=== PATIENT | female | born 1935 | race Caucasian/White ===

== ENCOUNTER 2016-07-23 12:08 | Outpatient (CLI) | payer MEDICARE, BC ==
[~2016-07-23] VITALS: Ht 165.1 cm; Wt 56.2 kg
--- OUTSIDE RECORDS SUMMARY | 2016-07-23 12:12 | XMS REPORT | Continuity of Care Document ---
Author Author [facility] Organization [facility] Address Unknown Phone Unavailable Care Team Providers Care Director Loan Name Role Phone Yokasta Hook PCP Unavailable Source Comments Some departments are not documenting in the electronic medical record. If you do not see the information that you expected, contact Release of Information in the Health Information Management department at [phone] for further assistance in locating additional records.[facility] Active Allergies and Adverse Reactions Allergen Noted Date Severity Reactions Comments Pcn 01/23/2011 RASH, ITCHING Current Medications Prescription Sig. Disp. Refills Start End Date Status Date oxycodone SR (OXYCONTIN) Take 10 mg by mouth every Active 10 mg PO tablet 12 hours. atenolol (TENORMIN) 50 mg Take 50 mg by mouth Active PO tablet daily. hydrocodone-acetaminophen Take 1-2 Tabs by mouth Active (NORCO) 5-325 mg PO per every 6 hours as needed. tablet calcitonin salmon Insert 1 [place] into nose Active (FORTICAL) 200 as directed daily. 1 unit/Actuation NA nasal spray to 1 nostril. spray Alternate nostrils. cyclobenzaprine Take 10 mg by mouth three Active (FLEXERIL) 10 mg PO times daily as needed. tablet Fesoterodine (TOVIAZ) 8 Take by mouth. Active mg PO Tb24 cyanocobalamin (VITAMIN Inject 1,000 mcg to Active B-12, RUBRAMIN) 1,000 area(s) as directed every mcg/mL IJ injection 30 days. alprazolam (XANAX) 0.5 mg Take 0.5 mg by mouth Active PO tablet three times daily as needed. aspirin EC 81 mg PO Take 81 mg by mouth Active tablet daily. Guar Gum (BENEFIBER Take by mouth. Active CLEAR) PO Pack senna/docusate Take 2 Tabs by mouth at Active (SENNALAX-S) 8.6/50 mg PO bedtime daily. tablet polysaccharide iron Take 150 mg by mouth Active complex (NIFEREX) 150 mg twice daily. PO capsule MULTI-VITAMIN PO Take by mouth. Active hydrocodone/acetaminophen Take 1-2 Tabs by mouth 30 Tab 0 01/31/20 Active (VICODIN) 5/500 mg PO every 6 hours as needed 11 tablet for Pain. docusate (COLACE) 100 mg Take 1 Cap by mouth daily 180 Cap 0 01/31/20 Active PO capsule as needed for 11 Constipation. Active Problems Not on file Social History Tobacco Use Types Packs/Day Years Used Date Former Smoker Cigarettes 1 25 Quit: 07/26/1998 Smokeless Tobacco: Never Used Alcohol Use Drinks/Week oz/Week Comments No Last Filed Vital Signs Vital Sign Reading Time Taken Blood Pressure 159/85 01/30/2011 11:49 AM CDT Pulse 72 01/30/2011 11:49 AM CDT Temperature 36.7 C (98 F) 01/30/2011 11:49 AM CDT Respiratory Rate - - Height 1.702 m (5' 7.01") 01/24/2011 1:00 PM CDT Weight 59.013 kg (130 lb 1.6 oz) 01/23/2011 8:25 PM CDT Body Mass Index 20.37 01/23/2011 8:25 PM CDT Oxygen Saturation 96% 01/30/2011 11:49 AM CDT Plan of Care Health Maintenance Due Date Last Done Comments Physical (Comprehensive) 1941 Exam Pertussis Vaccine 1945 Tetanus Vaccine 10/30/1951 Breast Cancer Screening 1974 Shingles Vaccine 1994 Osteoporosis Screening 10/30/1999 Prevnar/Pneumovax (#1) 10/30/1999 Influenza Vaccine 03/15/2015 Results from Last 3 Months Not on file
[2016-07-23] MEDS ORDERED: TRIAMCINOLONE ACET (KENALOG-40) 40 MG/ML 1 ML VIAL ONE (12:17)
[2016-07-23] MEDS ORDERED: BUPIVACAINE 0.25% 30 ML (SENSORCAINE) VIAL ONE (12:17)
[2016-07-23 12:31] VITALS: BP 100/67
[2016-07-23 13:33] VITALS: BP 103/62
--- NOTE | 2016-07-23 14:41 | Pain Medicine-Procedure ---
Procedure Pre-Op/Post-Op Diagnosis Diagnosis: disc disorder with radiculopathy, lumbar Indications for Operation Low back pain Attending Surgeon Ronnell Procedure Date of Service: Jul 23, 2016 PROCEDURE: Caudal Epidural Steroid Injection with catheter under Flouroscopic Guidance PROCEDURE NOTE: After obtaining written informed consent patient was taken to the procedure room. Vital signs were monitored through out the procedure. A time out was performed. The patient was placed in the prone position on fluoroscopy table. The lower back above the caudal space was prepped with chloraprep and draped in the usual sterile fashion. The skin over the sacral hiatus was identified under fluoroscopic guidance and infiltrated with 1% lidocaine for local anesthesia via 25 gauge needle. An 17-gauge epimed needle was used to access the epidural space under fluoroscopic guidance and was then advanced into the epidural space under fluoroscopic guidance in the AP view. The epimed catheter was then advanced under flourospopic guidance to the L5-S1 interspace. There was no paresthesia with catheter placement. After negative aspiration 1 cc of the contrast dye was injected through the needle with good spread of the medication in the epidural space at the appropriate levels. Again, after negative aspiration, 80 mg of kenalog with 2 cc of 0.25% marcaine and 2 mL's of preservative free normal saline was injected. There was no evidence of CSF, paresthesia or heme during the procedure. The catheter and needle were withdrawn as a unit and the tip was noted to be intact upon removal. Skin was cleaned and a sterile dressing was applied. Following the procedure the patient's vital signs were stable. The patient was discharged home after a brief period of observation with no new neuologic deficits. Complications None JUSTIN SHAW MD Jul 23, 2016 2:41 pm
== END 2016-07-23 13:34 | disposition home or self-care (01) ==
LOC: CARD 12:08 → EDBD 13:00 → CARD 13:34
PROVIDERS: ATTEND Pain Medicine Pain Medicine
DX: M51.16 Intervertebral disc disorders with radiculopathy, lumbar region (principal); M96.1 Postlaminectomy syndrome, not elsewhere classified; Z79.899 Other long term (current) drug therapy
CPT/HCPCS: 62323

== ENCOUNTER 2017-02-14 15:36 | Inpatient (IN) | payer MEDICARE, BC ==
[~2017-02-14] VITALS: Ht 172.7 cm; Wt 58.7 kg
[2017-02-14] MEDS ORDERED: ALPRAZolam 0.25 MG (XANAX) TAB PO PRN (16:00)
[2017-02-14] MEDS ORDERED: HYDROcodone/APAP 5 MG/325 MG (LORTAB) TAB PO PRN (16:00)
[2017-02-14] MEDS ORDERED: ACETAMINOPHEN 500 MG TAB (TYLENOL) PO PRN (16:00)
[2017-02-14] MEDS ORDERED: LACTULOSE SYRUP 10GM/15ML (ENULOSE) 30ML UDC PO PRN (16:00)
[2017-02-14 17:10] VITALS: BP 125/64
[2017-02-14] MEDS ORDERED: CATHETER FLUSH 10 ML SYR IV PRN (17:45)
[2017-02-14] MEDS: NS IV 1000 ML 1,000 ML IV SCH (17:47)
[2017-02-14] MEDS: fentaNYL INJECTION 100 MCG/2 ML AMP IVP PRN ×2 (17:47→20:24)
[2017-02-14] MEDS ORDERED: ASPI-586 PO (17:52)
[2017-02-14 18:30] LABS: BASOPHILS % (AUTO) 0 % (0-10); EOSINOPHILS % (AUTO) 0 % (0-10); LYMPHOCYTES # (AUTO) 0.8 X 10^3 (1.0-4.0); LYMPHOCYTES % (AUTO) 10 % (12-44); MEAN CORPUSCULAR HEMOGLOBIN 28 PG (25-34); MEAN CORPUSCULAR HGB CONC 33 G/DL (32-36); MEAN CORPUSCULAR VOLUME 85 FL (80-99); MEAN PLATELET VOLUME 9.6 FL (7.4-10.4); MONOCYTES # (AUTO) 0.8 X 10^3 (0.0-1.0); MONOCYTES % (AUTO) 9 % (0-12); NEUTROPHILS # (AUTO) 7.1 X 10^3 (1.8-7.8); NEUTROPHILS % (AUTO) 81 % (42-75); PLATELET COUNT 212 10^3/uL (130-400); RED BLOOD COUNT 4.48 10^6/uL (4.35-5.85); RED CELL DISTRIBUTION WIDTH 13.2 % (10.0-14.5); WHITE BLOOD COUNT 8.7 10^3/uL (4.3-11.0)
[2017-02-14 18:49] LABS: ALBUMIN 3.7 GM/DL (3.2-4.5); BILIRUBIN,TOTAL 0.6 MG/DL (0.1-1.0); CALCIUM 9.3 MG/DL (8.5-10.1); CREATININE SERUM 0.93 MG/DL (0.60-1.30); POTASSIUM 4.2 MMOL/L (3.6-5.0); TOTAL PROTEIN 5.9 GM/DL (6.4-8.2)
[2017-02-14 19:54] VITALS: BP 102/64
[2017-02-15] VITALS: BP 102/56
[2017-02-15] MEDS: fentaNYL INJECTION 100 MCG/2 ML AMP IVP PRN ×4 (00:53→12:47)
[2017-02-15 03:40] VITALS: BP 103/58
[2017-02-15 06:59] LABS: BASOPHILS % (AUTO) 0 % (0-10); EOSINOPHILS # (AUTO) 0.1 10^3/uL (0.0-0.3); EOSINOPHILS % (AUTO) 1 % (0-10); LYMPHOCYTES # (AUTO) 0.6 X 10^3 (1.0-4.0); LYMPHOCYTES % (AUTO) 12 % (12-44); MEAN CORPUSCULAR HEMOGLOBIN 27 PG (25-34); MEAN CORPUSCULAR HGB CONC 32 G/DL (32-36); MEAN CORPUSCULAR VOLUME 85 FL (80-99); MEAN PLATELET VOLUME 9.8 FL (7.4-10.4); MONOCYTES # (AUTO) 0.7 X 10^3 (0.0-1.0); MONOCYTES % (AUTO) 14 % (0-12); NEUTROPHILS # (AUTO) 3.5 X 10^3 (1.8-7.8); NEUTROPHILS % (AUTO) 73 % (42-75); PLATELET COUNT 160 10^3/uL (130-400); RED BLOOD COUNT 3.97 10^6/uL (4.35-5.85); RED CELL DISTRIBUTION WIDTH 13.2 % (10.0-14.5); WHITE BLOOD COUNT 4.8 10^3/uL (4.3-11.0)
[2017-02-15 07:11] LABS: ALANINE AMINOTRANSFERASE < 6 U/L (0-55); ALBUMIN 3.3 GM/DL (3.2-4.5); ANION GAP 11 MMOL/L (5-14); ASPARTATE AMINO TRANSFERASE 15 U/L (5-34); BILIRUBIN,TOTAL 0.8 MG/DL (0.1-1.0); BLOOD UREA NITROGEN 14 MG/DL (7-18); BUN/CREATININE RATIO 17; CALCIUM 8.7 MG/DL (8.5-10.1); CARBON DIOXIDE 18 MMOL/L (21-32); CHLORIDE 111 MMOL/L (98-107); CREATININE SERUM 0.81 MG/DL (0.60-1.30); GFR ESTIMATED > 60; GLUCOSE 120 MG/DL (70-105); POTASSIUM 4.2 MMOL/L (3.6-5.0); SODIUM 140 MMOL/L (135-145); TOTAL PROTEIN 5.1 GM/DL (6.4-8.2)
[2017-02-15] MEDS ORDERED: HYDR-3812 PO ×2 (07:47→08:55)
[2017-02-15] MEDS ORDERED: ALPR1TAB7 PO (07:47)
[2017-02-15] MEDS ORDERED: PANT40TA3 PO (07:47)
[2017-02-15] MEDS ORDERED: LISI10TA2 PO (07:47)
[2017-02-15] MEDS ORDERED: GABA-486 PO (07:47)
[2017-02-15] MEDS ORDERED: MIRA50TA PO (07:47)
[2017-02-15] MEDS: NS IV 1000 ML 1,000 ML IV SCH ×2 (08:04→10:03)
[2017-02-15 08:10] VITALS: BP 145/59
--- NOTE | 2017-02-15 08:30 | CONSULTATION REPORT ---
DATE OF CONSULTATION: 02/14/2017 REFERRING PHYSICIAN: HISTORY OF THE PRESENT ILLNESS: The patient was seen in an outside hospital and they were concerned because they did not have an intensive care unit there so the patient was transferred to this hospital for her left hip fracture. She talked about having a right hip fracture in the past and understanding the overall concepts and risks and benefits. ORTHOPEDIC EXAM: The patient is alert and oriented. Left lower extremity is internally rotated and shortened. Distally, grossly, neurovascularly intact. The skin is intact over the left hip. X-RAY REPORT: Report is of an intertrochanteric fracture involving the left hip. These were on a disc and I have not been able to see them myself yet. IMPRESSION: Left hip intertrochanteric fracture, unstable. PLAN: Surgery on left hip to line up bone and fix with hardware (open reduction and internal fixation of the left hip intertrochanteric fracture). CONSENT: I discussed the diagnosis, procedure, risks, benefits, alternatives, likely flores for success as well as rehab. The major risk is shortening of the extremity, toes turned in or out, some chronic pain or weakness in that lower extremity. Also there is a small chance of infection or hardware and not working or need for more surgery. The patient had all of her questions answered. Job ID: [id number] Dictated Date: 02/14/2017 21:58:30 Assembly Cleaner Date: 02/15/2017 08:24:37/pranay
--- NOTE | 2017-02-15 08:40 | Consultation-Cardiology ---
HPI-Cardiology Cardiology Consultation: Date of Consultation 02/15/17 Time Seen by Provider: 08:10 Date of Admission Attending Physician Lachelle Quigley DO Admitting Physician Lori Mckeon MD Consulting Physician ANDREW FLAHERTY MD, MA, FACP, FACC, FSCAI, CCDS HPI: Chief Complaint: Reason for consultation: Pre-op cardiac eval 81 yo woman with nonsyncopal fall leading to L hip fracture. Admitted to Dr Quigley. Awaiting hip surgery Denies cp or palp or shortness of breath or leg swelling or syncope Has chronic joint and back pain Review of Systems-Cardiology Review of Systems Constitutional: malaise, No weight loss, No weight gain Eyes: No vision change Ears/Nose/Throat: No ear discharge, No nasal drainage, No recent hearing loss Cardiovascular: As described under HPI Gastrointestinal: No constipation, No diarrhea, No nausea, No vomiting Genitourinary: No dysuria, No hematuria, No urine frequency changes Musculoskeletal: back pain, joint pain Skin: No rash, No ulcerations Psychiatric/Neurological: No focal weakness, No seizure, No syncope Hematologic: No bleeding abnormalities XWQ-Rscvoi-Nlyvop Hx Patient Social History Alcohol Use: Denies Use Recreational Drug Use: No Smoking Status: Former Smoker Type Used: Cigarettes Recent Foreign Travel: No Recent Infectious Disease Expo: No Physical Abuse Screen: No Sexual Abuse: No Past Medical History PMH As described under Assessment. Family Medical History Family History: Diabetes mellitus G8 SISTER Kidney disease 19 FATHER Parkinson's disease 19 FATHER Allergies and Home Medications Allergies Coded Allergies: Penicillins (Verified Allergy, Unknown, RASH, 02/14/17) oxycodone (Verified Allergy, Unknown, NAUSEA, 02/14/17) Home Medications Alprazolam 1 Mg Tablet, 1 MG PO BID, (Reported) Aspirin 81 Mg Tablet.dr, 81 MG PO DAILY, (Reported) Gabapentin 100 Mg Capsule, 100 MG PO BID, (Reported) Hydrocodone/Acetaminophen 1 Each Tablet, for PAIN-MODERATE, (Reported) Lisinopril 10 Mg Tablet, 10 MG PO DAILY, (Reported) Mirabegron 50 Mg Tab.er.24h, 50 MG PO DAILY, (Reported) Pantoprazole Sodium 40 Mg Tablet.dr, 40 MG PO DAILY, (Reported) Physical Exam-Cardiology Physical Exam Vital Signs/I&O Vital Sign - Last 12Hours 02/15/17 02/15/17 00:00 03:40 Temp 99.2 98.5 Pulse 93 99 Resp 20 18 B/P (MAP) 102/56 103/58 Pulse Ox 96 95 O2 Delivery Room Air Room Air Intake and Output 02/15/17 00:00 Intake Total 160 ml Output Total 800 ml Balance -640 ml Capillary Refill : Less Than 3 Seconds Constitutional: AAO x 3, other (thin appearing) HEENT: EOMI, oral hygience is good, No xanthelasmas are seen Neck: carotid pulses are 2 + bilaterally, with good upstrokes Respiratory: No accessory muscle use, other (fair to good bilateral air entry) Cardiovascular: regular rate-rhythm, S1 and S2, systolic murmur (faint TAMIKO at card base) Gastrointestinal: No tender, No guarding, No rebound, audible bowel sounds Extremities: No clubbing, No cyanosis Neurologic/Psychiatric: oriented x 3, other (We did not attempt any motion at the lower limb joints. Moves upper limbs equally), grossly intact Skin: No rash on exposed areas, No ulcerations on exposed areas Data Review Labs Laboratory Tests 02/14/17 18:23: White Blood Count 8.7, Red Blood Count 4.48, Hemoglobin 12.4, Hematocrit 38, Mean Corpuscular Volume 85, Mean Corpuscular Hemoglobin 28, Mean Corpuscular Hemoglobin Concent 33, Red Cell Distribution Width 13.2, Platelet Count 212, Mean Platelet Volume 9.6, Neutrophils (%) (Auto) 81H, Lymphocytes (%) (Auto) 10L , Monocytes (%) (Auto) 9, Eosinophils (%) (Auto) 0, Basophils (%) (Auto) 0, Neutrophils # (Auto) 7.1, Lymphocytes # (Auto) 0.8L, Monocytes # (Auto) 0.8, Eosinophils # (Auto) 0.0, Basophils # (Auto) 0.0, Sodium Level 142, Potassium Level 4.2, Chloride Level 110H, Carbon Dioxide Level 23, Anion Gap 9, Blood Urea Nitrogen 18, Creatinine 0.93, Estimat Glomerular Filtration Rate 58, BUN/ Creatinine Ratio 19, Glucose Level 134H, Calcium Level 9.3, Total Bilirubin 0.6 , Aspartate Amino Transf (AST/SGOT) 17, Alanine Aminotransferase (ALT/SGPT) 6, Alkaline Phosphatase 78, Total Protein 5.9L, Albumin 3.7 02/15/17 06:30: White Blood Count 4.8, Red Blood Count 3.97L, Hemoglobin 10.8L, Hematocrit 34L, Mean Corpuscular Volume 85, Mean Corpuscular Hemoglobin 27, Mean Corpuscular Hemoglobin Concent 32, Red Cell Distribution Width 13.2, Platelet Count 160, Mean Platelet Volume 9.8, Neutrophils (%) (Auto) 73, Lymphocytes (%) (Auto) 12, Monocytes (%) (Auto) 14H, Eosinophils (%) (Auto) 1, Basophils (%) (Auto) 0, Neutrophils # (Auto) 3.5, Lymphocytes # (Auto) 0.6L, Monocytes # (Auto) 0.7, Eosinophils # (Auto) 0.1, Basophils # (Auto) 0.0, Sodium Level 140, Potassium Level 4.2, Chloride Level 111H, Carbon Dioxide Level 18L, Anion Gap 11, Blood Urea Nitrogen 14, Creatinine 0.81, Estimat Glomerular Filtration Rate > 60, BUN/ Creatinine Ratio 17, Glucose Level 120H, Calcium Level 8.7, Total Bilirubin 0.8 , Aspartate Amino Transf (AST/SGOT) 15, Alanine Aminotransferase (ALT/SGPT) < 6 , Alkaline Phosphatase 74, Total Protein 5.1L, Albumin 3.3 Laboratory Tests 02/14/17 18:23 02/15/17 06:30 ECG Impression ECG Comment ECG on 02/15/17: NSR with left axis deviation, unchanged compared to 02/14/17 A/P-Cardiology Assessment/Admission Diagnosis * H/o cardiomyopathy and h/o CHF (according to patient's family) the details of which are unknown * Family reports that a cardiac cath [facility] about 2 years ago did not show any significant heart artery blockages * Pt doesn't report any symptoms of angina or CHF * Nonspecific abnormalities on ECG * Hypertension * R hip fracture for which she is awaiting surgery Discussion and Recomendations * Based on the data available (see above) cardiac risk for noncardiac surgery is estimated to be Intermediate. It appears reasonable to proceed with necessary surgery. I did discuss her cardiac risk with her and her daughter. They understand. The patient wishes to proceed * We recommend enoxaparin DVT prophylaxis perioperatively * We are trying to obtain details of cardiac work up at [facility] Clinical Quality Measures DVT/VTE Risk/Contraindication: Risk Factor Score Per Nursin RFS Level Per Nursing on Admit: 4+=Very High Contraindications-Pharm: Other *list below* Other: surgery tomorrow ANDREW FLAHERTY MD FACP FAC CCDS Feb 15, 2017 08:40
[2017-02-15] MEDS ORDERED: SENN-40 PO (08:44)
[2017-02-15] MEDS ORDERED: CYAN100081 PO (08:44)
[2017-02-15] MEDS: ONDANSETRON 4 MG/2 ML (SDV) Z0FRAN IVP PRN ×3 (10:03→21:22)
[2017-02-15 12:00] VITALS: BP 132/70
--- NOTE | 2017-02-15 12:09 | History & Physical-Hospitalist ---
HPI History of Present Illness: HPI/Chief Complaint CC: Acute left hip fracture sustained in fall at home HPI: This is an 81-year-old white female patient of Dr Enciso in [place] the presents after a direct admission transfer acceptance onto the hospitalist service from [place] emergency room. Apparently she turned around near her refrigerator door and fell over a chair and stayed on the floor for 20 minutes until her grader meat arrived and she was brought to the emergency room found to have left hip fracture in need of repair. Patient has required skilled care at medical [facility] [place] in the past and that is where she wants to return to on Saturday. Her daughter is at the bedside with her today. I reconciled all her home medication and she is prepared for repair this afternoon to begin therapy. She does have a history of congestive heart failure severe echocardiogram was completed and cardiology was consulted for risk stratification. Source: patient, family Exam Limitations: no limitations Date Seen 02/15/17 Time Seen by Provider: 11:00 Attending Physician Lachelle Quigley DO PCP Lori Mckeon MD Referring Physician Date of Admission Feb 14, 2017 at 17:36 Home Medications & Allergies Home Medications Reviewed patient Home Medication Reconciliation Form Allergies Allergies Coded Allergies Penicillins (Verified Allergy, Unknown, RASH, 02/14/17) oxycodone (Verified Allergy, Unknown, NAUSEA, 02/14/17) Past Bfxjife-Vxvutk-Vtkmer Hx Patient Social History Marrital Status: single Employed/Student: retired ( [employer] [place] [employer]) Alcohol Use: Denies Use Recreational Drug Use: No Smoking Status: Former Smoker Type Used: Cigarettes Physical Abuse Screen: No Sexual Abuse: No Recent Foreign Travel: No Contact w/other who traveled: No Recent Hopitalizations: No Recent Infectious Disease Expo: No Seasonal Allergies Seasonal Allergies: No Surgeries HX Surgeries: Yes Surgeries: Orthopedic Respiratory Hx Respiratory Disorders: No Cardiovascular Hx Cardiovascular Disorders: Yes Cardiac Disorders: Cardiomyopathy Neurological Hx Neurological Disorders: No 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 Genitourinary Hx Genitourinary Disorders: Yes Genitourinary Disorders: Bladder Infection, UTI-Chronic Gastrointestinal Hx Gastrointestinal Disorders: Yes Gastrointestinal Disorders: Chronic Constipation, Hiatal Hernia, Gall Bladder Disease Musculoskeletal Hx Musculoskeletal Disorders: Yes Musculoskeletal Disorders: Arthritis, Fractures Endocrine Hx Endocrine Disorders: No HEENT Hearing Impairment: Hard of Hearing Cancer Hx Cancer: No Psychosocial Hx Psychiatric Problems: Yes Behavioral Health Disorders: Anxiety Family Medical History Family Hx: Diabetes mellitus G8 SISTER Kidney disease 19 FATHER Parkinson's disease 19 FATHER Review of Systems Constitutional: see HPI EENTM: no symptoms reported Respiratory: no symptoms reported Cardiovascular: no symptoms reported Gastrointestinal: no symptoms reported Genitourinary: no symptoms reported Musculoskeletal: joint pain (left hip) Skin: no symptoms reported Psychiatric/Neurological: No Symptoms Reported All Other Systems Reviewed Negative Unless Noted: Yes Physical Exam Physical Exam Vital Signs Vital Sign - Last 12Hours 02/14/17 17:10 Temp 98.2 Pulse 92 Resp 20 B/P (MAP) 125/64 Pulse Ox 96 O2 Delivery Room Air Capillary Refill : Less Than 3 Seconds General Appearance: No Apparent Distress, WD/WN, Chronically ill Eyes: Bilateral Eye Normal Inspection, Bilateral Eye PERRL HEENT: PERRL/EOMI, Normal ENT Inspection, Pharynx Normal Neck: Full Range of Motion, Normal Inspection, Non Tender, Supple, Carotid Bruit Respiratory: Chest Non Tender, Lungs Clear, Normal Breath Sounds, No Accessory Muscle Use, No Respiratory Distress Cardiovascular: Regular Rate, Rhythm, No Edema, No Gallop, No JVD, No Murmur, Normal Peripheral Pulses Gastrointestinal: Normal Bowel Sounds, No Organomegaly, No Pulsatile Mass, Non Tender, Soft Back: Normal Inspection, No CVA Tenderness, No Vertebral Tenderness Extremity: Normal Capillary Refill, Normal Inspection, Normal Range of Motion, Non Tender, No Calf Tenderness, No Pedal Edema Neurologic/Psychiatric: Alert, Oriented x3, No Motor/Sensory Deficits, Depressed Affect Skin: Normal Color, Warm/Dry Lymphatic: No Adenopathy Results Results/Procedures Lab Laboratory Tests 02/14/17 18:23 02/15/17 06:30 Assessment/Plan Admission Diagnosis Assessment: Acute left hip fracture in need of repair today Anxiety GERD Depression Anxiety Debility Assessment and Plan Plan: Proceed on with hip repair since benefits outweigh medical risks. Reconcile all home meds Monitor labs Check echocardiogram Appreciate cardiology consultation Clinical Quality Measures DVT/VTE Risk/Contraindication: Risk Factor Score Per Nursin RFS Level Per Nursing on Admit: 4+=Very High Contraindications-Pharm: Other *list below* Other: surgery tomorrow LACHELLE QUIGLEY DO Feb 15, 2017 12:09
[2017-02-15] MEDS ORDERED: HYDROcodone/APAP 5 MG/325 MG (LORTAB) TAB PO PRN (12:15)
[2017-02-15] MEDS ORDERED: SENNA W/DOCUSATE (SENOKOT S) TABLET PO PRN (12:15)
[2017-02-15] MEDS ORDERED: LACTATED RINGERS 1,000 ML IV ONE (14:40)
[2017-02-15] MEDS ORDERED: LIDOCAINE JELLY 2% (XYLOCAINE) 5 ML TUBE ONE (14:40)
[2017-02-15] MEDS ORDERED: ONDANSETRON 4 MG/2 ML (SDV) Z0FRAN ONE (14:40)
[2017-02-15] MEDS ORDERED: LIDOCAINE PF 2% 5 ML (XYLOCAINE) VIAL ONE ×2 (14:40→14:44)
[2017-02-15] MEDS ORDERED: proPOfol 200 MG/20 ML (DIPRIVAN) VIAL IV ONE (14:40)
[2017-02-15] MEDS ORDERED: SEVOFLURANE (ULTANE) 15 ML INHAL SOLN ONE ×5 (14:40→16:54)
[2017-02-15] MEDS ORDERED: DEXAMETHASONE PF 10 MG/ML (DECADRON) VIAL ONE (14:40)
[2017-02-15] MEDS ORDERED: MIDAZOLAM 2 MG/2 ML (VERSED) VIAL ONE (14:41)
[2017-02-15] MEDS ORDERED: fentaNYL INJECTION 100 MCG/2 ML AMP ONE (14:41)
[2017-02-15] MEDS ORDERED: BUP/EPI 0.5% 1:200,000 (MARCAINE) 10ML VIAL IJ ONE (14:54)
[2017-02-15] MEDS ORDERED: ROCURONIUM 50 MG/5 ML (ZEMURON) VIAL IV ONE (14:59)
[2017-02-15] MEDS ORDERED: CLINDAMYCIN 600 MG/4ML (CLEOCIN) VIAL ONE (16:23)
[2017-02-15] MEDS ORDERED: TRANEXAMIC ACID 100 MG/ML 10 ML INJECTION IV ONE (16:31)
[2017-02-15] MEDS ORDERED: morphine INJ 10 MG/ML 1ML (SYR OR VIAL) ONE (16:41)
[2017-02-15] MEDS ORDERED: CLINDAMYCIN 600 MG/50 ML IVPB 50 ML IV ONE (17:15)
[2017-02-15] MEDS ORDERED: ONDANSETRON 4 MG/2 ML (SDV) Z0FRAN IV PRN (17:15)
[2017-02-15] MEDS ORDERED: ACETAMINOPHEN 325 MG TABLET/CAPLET (TYLENOL) PO PRN (17:15)
[2017-02-15] MEDS ORDERED: morphine INJ 10 MG/ML 1ML (SYR OR VIAL) IVP PRN (17:30)
[2017-02-15] MEDS ORDERED: ONDANSETRON 4 MG/2 ML (SDV) Z0FRAN IVP PRN (17:30)
[2017-02-15] MEDS ORDERED: warFARin 2 MG (COUMADIN) TAB PO SCH (18:00)
[2017-02-15] MEDS ORDERED: warFARin 5 MG (COUMADIN) TAB PO SCH (18:30)
[2017-02-15] MEDS ORDERED: NS (IVPB) 100 ML ONE (18:38)
--- NOTE | 2017-02-15 19:14 | Diagnostic Imaging Report ---
Clinical indication: Status post open reduction internal fixation of the left femur. Exam: A total of 3 limited intraoperative x-ray images of the left hip. Comparison: None. Findings and impression: There is an intramedullary nail internally fixing the left femur with the femoral neck region appearing in anatomical alignment. Please see surgeon's report for more detail. Fluoroscopy was provided for surgeons and a total of 136 seconds of fluoroscopy was provided. Dictated by: Dictated on workstation # [id number]
[2017-02-15 20:14] VITALS: BP_SYST 158; BP_SYST 92; BP_DIAS 63; BP_DIAS 69
[2017-02-15] MEDS ORDERED: CLINDAMYCIN 600 MG/50 ML IVPB 50 ML IV SCH (21:00)
[2017-02-15] MEDS: HYDROcodone/APAP 5 MG/325 MG (LORTAB) TAB PO PRN (21:19)
[2017-02-15] MEDS: GABAPENTIN 100 MG (NEURONTIN) CAP PO SCH (21:19)
[2017-02-15] MEDS: CLINDAMYCIN 600 MG/NS 50 ML IVPB IV SCH ×2 (21:19)
[2017-02-15 22:30] VITALS: BP 105/59
[2017-02-15] MEDS: ALPRAZolam 1 MG (XANAX) TAB PO PRN (23:06)
[2017-02-16] VITALS (18 sets, daily range): BP systolic 80–105; BP diastolic 46–63
[2017-02-16] MEDS ORDERED: NS IV 500 ML 500 ML ONE (02:43)
[2017-02-16] MEDS ORDERED: NS IV 500 ML 500 ML IV SCH (02:45)
[2017-02-16] MEDS ORDERED: NS IV 500 ML 500 ML IV ONE (03:10)
[2017-02-16] MEDS: NS IV 1000 ML 1,000 ML IV SCH ×3 (03:40→20:10)
[2017-02-16] MEDS: PANTOPRAZOLE 40 MG (PROTONIX) TAB PO SCH (05:21)
[2017-02-16 06:09] LABS: BASOPHILS % (AUTO) 0 % (0-10); EOSINOPHILS % (AUTO) 0 % (0-10); LYMPHOCYTES # (AUTO) 0.5 X 10^3 (1.0-4.0); LYMPHOCYTES % (AUTO) 5 % (12-44); MEAN CORPUSCULAR HEMOGLOBIN 28 PG (25-34); MEAN CORPUSCULAR HGB CONC 32 G/DL (32-36); MEAN CORPUSCULAR VOLUME 87 FL (80-99); MEAN PLATELET VOLUME 10.2 FL (7.4-10.4); MONOCYTES # (AUTO) 1.3 X 10^3 (0.0-1.0); MONOCYTES % (AUTO) 13 % (0-12); NEUTROPHILS # (AUTO) 7.8 X 10^3 (1.8-7.8); NEUTROPHILS % (AUTO) 82 % (42-75); PLATELET COUNT 110 10^3/uL (130-400); RED BLOOD COUNT 2.93 10^6/uL (4.35-5.85); RED CELL DISTRIBUTION WIDTH 13.1 % (10.0-14.5); WHITE BLOOD COUNT 9.5 10^3/uL (4.3-11.0)
[2017-02-16 06:51] LABS: ALBUMIN 2.8 GM/DL (3.2-4.5); BILIRUBIN,TOTAL 0.4 MG/DL (0.1-1.0); CREATININE SERUM 1.28 MG/DL (0.60-1.30); POTASSIUM 4.4 MMOL/L (3.6-5.0); TOTAL PROTEIN 4.4 GM/DL (6.4-8.2)
[2017-02-16] MEDS: lisINopril 10 MG (PRINIVIL) TAB PO SCH (09:06)
[2017-02-16] MEDS: GABAPENTIN 100 MG (NEURONTIN) CAP PO SCH ×2 (09:07→20:10)
[2017-02-16] MEDS: CYANOCOBALAMIN 500 MCG TAB (VITAMIN B-12) PO SCH (09:07)
[2017-02-16] MEDS: CLINDAMYCIN 600 MG/NS 50 ML IVPB IV SCH ×2 (09:18)
--- NOTE | 2017-02-16 11:13 | Anesthesia-General Post-Op ---
General Patient Condition Mental Status/LOC: Same as Preop Cardiovascular: Satisfactory Nausea/Vomiting: Absent Respiratory: Satisfactory Pain: Controlled Complications: Absent Post Op Complications Complications None Follow Up Care/Instructions Patient Instructions None needed. Anesthesia/Patient Condition Patient Condition Patient is doing well, no complaints, stable vital signs, no apparent adverse anesthesia problems. No complications reported per nursing. DICK ANDRADE CRNA Feb 16, 2017 11:13
--- NOTE | 2017-02-16 11:16 | Progress Note-Hospitalist ---
Progress Note HPI/CC on Admission CC: Acute left hip fracture sustained in fall at home HPI: This is an 81-year-old white female patient of Dr Enciso in [place] the presents after a direct admission transfer acceptance onto the hospitalist service from [place] emergency room. Apparently she turned around near her refrigerator door and fell over a chair and stayed on the floor for 20 minutes until her cuff slitter arrived and she was brought to the emergency room found to have left hip fracture in need of repair. Patient has required skilled care at medical [place] [facility] [place] in the past and that is where she wants to return to on Saturday. Her daughter is at the bedside with her today. I reconciled all her home medication and she is prepared for repair this afternoon to begin therapy. She does have a history of congestive heart failure severe echocardiogram was completed and cardiology was consulted for risk stratification. Progress Notes/Assess & Plan Date Seen 02/16/17 Time Seen by Provider: 10:00 Admission Dx/Process Assessment: Acute left hip fracture in need of repair today Anxiety GERD Depression Anxiety Debility Diagonsis/Assessment & Plan Patient doing well except had hypotension that responded to fluid bolus but then hemoglobin this morning was 8.16 receiving 2 units of packed red blood cells because of her symptomatic status with dizziness and hypotension Family at bedside Patient appears to have cognitive decline unsure of how severe the dementia is Receiving home medication Appreciate cardiology input No fever, vital signs stable currently lowest blood pressure was 80/60 Chronically ill, pale, frail, subtle confusion Regular rate rhythm, clear to auscultation bilaterally diminished in the bases No edema Laboratory Tests 02/16/17 05:55 Assessment: Acute left hip fracture s/p repair uncomplicated POD # 1 Post op anemia receiving 2 units of blood due to hypotension w/dizziness Anxiety GERD Depression Chronic Debility Dementia? Plan: Continue all home meds Monitor labs Appreciate cardiology consultation Transfusion of 2 units today Fall risk when dizzy upon standing [facility] Saturday Bowel regimen NEREIDA ALCANTARA DO Feb 16, 2017 11:16
--- NOTE | 2017-02-16 12:40 | Cardiology Progress Note ---
Cardiology SOAP Progress Note Subjective: No cardiac complaints Objective: I&O/Vital Signs Vital Sign - Last 12Hours 02/16/17 02/16/17 02/16/17 02/16/17 00:50 03:39 04:38 05:22 Temp 97.0 96.9 Pulse 115 95 95 90 Resp 20 16 B/P (MAP) 80/50 89/54 97/59 93/49 Pulse Ox 93 98 O2 Delivery Nasal Cannula Nasal Cannula O2 Flow Rate 2.00 2.00 02/16/17 02/16/17 02/16/17 02/16/17 06:15 07:10 08:00 08:10 Temp 98.2 Pulse 91 130 Resp 20 B/P (MAP) 97/56 88/52 Pulse Ox 90 O2 Delivery Nasal Cannula Nasal Cannula Room Air O2 Flow Rate 2.00 2.00 02/16/17 02/16/17 10:26 10:50 Temp 97.4 97.8 Pulse 91 89 Resp 18 20 B/P (MAP) 86/54 91/58 Pulse Ox 95 O2 Delivery Nasal Cannula O2 Flow Rate 2.00 Intake and Output 02/16/17 00:00 Intake Total 1304 ml Output Total 650 ml Balance 654 ml Weight (Pounds): 129 Weight (Ounces): 8.0 Weight (Calculated Kilograms): 58.739435 Constitutional: AAO x 3, other (thin appearing) Respiratory: No accessory muscle use, other (fair to good bilateral air entry) Cardiovascular: regular rate-rhythm, S1 and S2, systolic murmur (faint TAMIKO at card base) Gastrointestional: No tender, No guarding, No rebound, audible bowel sounds Extremities: No clubbing, No cyanosis Neurologic/Psychiatric: oriented x 3, other (We did not attempt any motion at the lower limb joints. Moves upper limbs equally), grossly intact Skin: No rash on exposed areas, No ulcerations on exposed areas Results/Procedures: Labs Laboratory Tests 02/16/17 05:55: White Blood Count 9.5, Red Blood Count 2.93L, Hemoglobin 8.1#L, Hematocrit 25L, Mean Corpuscular Volume 87, Mean Corpuscular Hemoglobin 28, Mean Corpuscular Hemoglobin Concent 32, Red Cell Distribution Width 13.1, Platelet Count 110L, Mean Platelet Volume 10.2, Neutrophils (%) (Auto) 82H, Lymphocytes (%) (Auto) 5L , Monocytes (%) (Auto) 13H, Eosinophils (%) (Auto) 0, Basophils (%) (Auto) 0, Neutrophils # (Auto) 7.8, Lymphocytes # (Auto) 0.5L, Monocytes # (Auto) 1.3H, Eosinophils # (Auto) 0.0, Basophils # (Auto) 0.0, Sodium Level 138, Potassium Level 4.4, Chloride Level 111H, Carbon Dioxide Level 17L, Anion Gap 10, Blood Urea Nitrogen 20H, Creatinine 1.28, Estimat Glomerular Filtration Rate 40, BUN/ Creatinine Ratio 16, Glucose Level 166H, Calcium Level 8.0L, Total Bilirubin 0.4 , Aspartate Amino Transf (AST/SGOT) 17, Alanine Aminotransferase (ALT/SGPT) 7, Alkaline Phosphatase 55, Total Protein 4.4L, Albumin 2.8L A/P: Assessment/Dx: * Hypotensive overnight. IV fluids given * H/o cardiomyopathy and h/o CHF (according to patient's family) the details of which are unknown: Normal EF on echocardiogram done 02/14/2017 * Family reports that a cardiac cath [facility] Wakefield about 2 years ago did not show any significant heart artery blockages * Pt doesn't report any symptoms of angina or CHF * Nonspecific abnormalities on ECG * Hypertension * R hip fracture surgery Plan: Significant decrease in hemoglobin suggest possible bleeding. Hypotension is very likely noncardiac especially with normal ejection fraction. Defer further treatment of hypotension to the primary team. Surgery team put the patient on Coumadin; etiology unclear. Patient does not have atrial fibrillation or history of prosthetic heart valve. Defer to surgery. Thank you for your consultation. Please call me if you have any questions. Kp Paul MD, FACP, FACC, FSCAI, FHRS, CCDS Interventional Cardiology Cardiac Electrophysiology Vascular Medicine and Endovascular Interventions Andrea APUL MD Feb 16, 2017 12:40 pm
[2017-02-16] MEDS: LACTULOSE SYRUP 10GM/15ML (ENULOSE) 30ML UDC PO SCH ×2 (12:53→20:11)
[2017-02-16] MEDS: HYDROcodone/APAP 5 MG/325 MG (LORTAB) TAB PO PRN ×2 (12:53→23:53)
--- NOTE | 2017-02-16 13:08 | Physical Therapy Evaluation ---
PT Evaluation-General Medical Diagnosis Admission Date Feb 14, 2017 at 17:36 Medical Diagnosis: s/p (L) hip ORIF Onset Date: Feb 14, 2017 Therapy Diagnosis Therapy Diagnosis: limited mobility Height/Weight Height (Feet): 5 Height (Inches): 8.00 Weight (Pounds): 129 Weight (Ounces): 8.0 Precautions Precautions/Isolations: Fall Prevention, Standard Precautions Referral Physician: Soraida Reason for Referral: Evaluation/Treatment Medical History Additional Medical History CHF, cardiomyopathy, chronic UTI, chronic consitipation, hard of hearing, anxiety Current History Pt fell at home, resulting in a femur fracture. She underwent (L) hip ORIF on 02/15/17. Reviewed History: Yes Social History Home: Single Level Current Living Status: Alone Entry Into Home: Level Entry Prior/Core FIM Prior Level of Function Functional [place] Measure 0=Not Assessed/NA 4=Minimal Assistance 1=Total Assistance 5=Supervision or Setup 2=Maximal Assistance 6=Modified [place] 3=Moderate Assistance 7=Complete [place] Bed Mobility: 6 Transfers (B,C,W/C) (FIM): 6 Gait: 5 Locomotion: 5 Pt states that she uses a walker and does not leave the house without assistance. PT Evaluation-Current Subjective (L) hip pain 8/10 on arrival today. Pain Numeric Pain Scale: 8 Location: Left Location Body Site: Hip Pt/Family Goals Return home. Objective Patient Orientation: Person, Place, Time, Situation Problem Solving: Fair Attachments: Oxygen, IV Pt communicates well, but does appear to have an occasional memory lapse. ROM/Strength ROM Upper Extremities WFL ROM Lower Extremities Limited tolerance to (L) hip ROM. Strength Upper Extremities WFL Strenght Lower Extremities Unable to perform (L) LE ex without at least 80% assist. Integumentary/Posture Bowel Incontinence: Yes Bladder Incontinence: Yes Neuromuscular (Tone, Coordination, Reflexes) intact Sensory Vision: Functional Hearing: Impaired Sensation Right Upper Extremit: Intact Sensation Left Upper Extremity: Intact Sensation Right Lower Extremit: Intact Sensation Left Lower Extremity: Intact Transfers Functional [place] Measure 0=Not Assessed/NA 4=Minimal Assistance 1=Total Assistance 5=Supervision or Setup 2=Maximal Assistance 6=Modified [place] 3=Moderate Assistance 7=Complete [place] Transfers (B, C, W/C) (FIM): 3 Scootin Rollin Supine to/from Sit: 3 Sit to/from Stand: 3 Unable to stand due to nausea and dyspnea, secondary to low hemoglobin, while sitting edge of bed. She was able to sit edge of bed for 3 minutes. Gait Mode of Locomotion: Walk Anticipated Mode of Locomotion: Walk Distance (FIM): 0=does not occure Gait Assistive Device: FWW Comments/Gait Description Pt was not able to attempt standing due to low hemoglobin. Balance Sitting Static: Good Sitting Dynamic: Fair Assessment/Needs Pt is very weak and limited due to low hemoglobin. Nursing indicated that she would be receiving units later. Rehab Potential: Fair PT Short Term Goals Short Term Goals Time Frame: Mar 02, 2017 Transfers (B,C,W/C) (FIM): 5 Gait (FIM): 5 Distance (FIM): 3=150 ft Gait Level of Assist: 5 Gait Assistive Device: FWW PT Plan Problem List Problem List: Activity Tolerance, Functional Strength, Safety, Balance, Gait, Transfer, Bed Mobility, ROM Treatment/Plan Treatment Plan: Continue Plan of Care Treatment Plan: Bed Mobility, Functional Activity Ning, Functional Strength, Gait, Safety, Therapeutic Exercise, Transfers Treatment Duration: Mar 02, 2017 Frequency: At least 5-7 days/Wk (IRF) Estimated Hrs Per Day: 1 hour per day Patient and/or Family Agrees t: Yes Time/GCodes Time In: 08 Time Out: 0845 Total Billed Treatment Time: 25 Total Billed Treatment 1, CIPRIANO Escobar PT Feb 16, 2017 13:08
[2017-02-16] MEDS: ALPRAZolam 1 MG (XANAX) TAB PO PRN (13:30)
--- NOTE | 2017-02-16 16:16 | Progress Note-Standard ---
Standard Progress Note Progress Notes/Assess & Plan Date Seen by Provider: Feb 16, 2017 Time Seen by Provider: 16:14 Progress/Assessment & Plan Lab, HGB 8.1 Dressing: clean and dry. Hip: gentle PROM to hip without undue discomfort, and with smooth motion. Assessment: Stable POD #1 with post op anemia. Plan: Continue Phy Therapy, Full weight bearing. Admitting MD ordered transfuse 2 u PRBCs. I Agree with transfusion. Final Diagnosis S/P Hip ORIF for intertrochanteric fx, Stable NILAM NELSON MD Feb 16, 2017 16:16
[2017-02-17 04:40] VITALS: BP 98/59
[2017-02-17] MEDS: NS IV 1000 ML 1,000 ML IV SCH ×2 (05:42→16:21)
[2017-02-17] MEDS: PANTOPRAZOLE 40 MG (PROTONIX) TAB PO SCH (05:42)
[2017-02-17 08:00] VITALS: BP 108/57
[2017-02-17 08:15] LABS: BASOPHILS % (AUTO) 0 % (0-10); EOSINOPHILS # (AUTO) 0.1 10^3/uL (0.0-0.3); EOSINOPHILS % (AUTO) 1 % (0-10); LYMPHOCYTES # (AUTO) 0.8 X 10^3 (1.0-4.0); LYMPHOCYTES % (AUTO) 10 % (12-44); MEAN CORPUSCULAR HEMOGLOBIN 28 PG (25-34); MEAN CORPUSCULAR HGB CONC 33 G/DL (32-36); MEAN CORPUSCULAR VOLUME 86 FL (80-99); MEAN PLATELET VOLUME 10.3 FL (7.4-10.4); MONOCYTES # (AUTO) 0.9 X 10^3 (0.0-1.0); MONOCYTES % (AUTO) 10 % (0-12); NEUTROPHILS # (AUTO) 6.6 X 10^3 (1.8-7.8); NEUTROPHILS % (AUTO) 79 % (42-75); PLATELET COUNT 138 10^3/uL (130-400); RED BLOOD COUNT 3.58 10^6/uL (4.35-5.85); RED CELL DISTRIBUTION WIDTH 14.8 % (10.0-14.5); WHITE BLOOD COUNT 8.4 10^3/uL (4.3-11.0)
[2017-02-17] MEDS ORDERED: PATIENT MAY USE OWN MED,SINGLE MED PO SCH (08:15)
[2017-02-17 08:22] LABS: ALBUMIN 2.9 GM/DL (3.2-4.5); BILIRUBIN,TOTAL 0.8 MG/DL (0.1-1.0); CALCIUM 8.2 MG/DL (8.5-10.1); CREATININE SERUM 1.03 MG/DL (0.60-1.30); POTASSIUM 4.1 MMOL/L (3.6-5.0); TOTAL PROTEIN 4.7 GM/DL (6.4-8.2)
--- NOTE | 2017-02-17 09:23 | Physical Therapy Daily Note ---
PT Daily Note-Current Subjective Pt reports that her (L) hip pain has limited her sleep. She is ready to get up and go to the chair. Pain Numeric Pain Scale: 8 Location: Left Location Body Site: Hip Pain Description: Sharp Appearance Awake and alert. Mental Status Patient Orientation: Person, Place, Situation Attachments: Oxygen, IV Transfers Functional [place] Measure 0=Not Assessed/NA 4=Minimal Assistance 1=Total Assistance 5=Supervision or Setup 2=Maximal Assistance 6=Modified [place] 3=Moderate Assistance 7=Complete IndependenceIRFPAI Quality Coding Scale 6 Independent with activity with or without an assistive device 5 Patient requires set up or clean up by helper. Patient completes activity by themselves 4 Supervision or touching assist (CGA). Buras provide cues , steadying assist 3 The helper provides less than half the effort to complete the activity 2 The helper provides more than half the effort to complete the activity 1 Dependent. The helper does all the effort to complete an activity 7 Patient refused to complete or attempt activity 9 The patient did not perform the activity before the current illness or injury 88 Not attempted due to Medical conditions or safety concerns Transfers (B, C, W/C) (FIM): 2 Scootin Rollin Supine to/from Sit: 2 Sit to/from Stand: 2 Bed to/from Chair: 2 Pt was able to bear wt during the transfer. She has severe kyphosis. Exercises Supine Ex: Heel Slides Supine Reps: 15 Assessment Pt transferred to the bedside chair. Nursing present during transfer. Nursing to return pt to bed when ready. PT Short Term Goals Short Term Goals Time Frame: Mar 02, 2017 Transfers (B,C,W/C) (FIM): 5 Gait (FIM): 5 Distance (FIM): 3=150 ft Gait Level of Assist: 5 Gait Assistive Device: FWW PT Plan Treatment/Plan Treatment Plan: Continue Plan of Care Treatment Plan: Bed Mobility, Functional Activity Ning, Functional Strength, Gait, Safety, Therapeutic Exercise, Transfers Treatment Duration: Mar 02, 2017 Frequency: At least 5-7 days/Wk (IRF) Estimated Hrs Per Day: 1 hour per day Patient and/or Family Agrees t: Yes Time/GCodes Time In: 0855 Time Out: 0910 Total Billed Treatment Time: 15 Total Billed Treatment 1, fa 15 CIPRIANO WILBURN PT Feb 17, 2017 09:23
[2017-02-17] MEDS: GABAPENTIN 100 MG (NEURONTIN) CAP PO SCH ×2 (09:29→20:03)
[2017-02-17] MEDS: HYDROcodone/APAP 5 MG/325 MG (LORTAB) TAB PO PRN ×2 (09:29→17:05)
[2017-02-17] MEDS: CYANOCOBALAMIN 500 MCG TAB (VITAMIN B-12) PO SCH (09:29)
[2017-02-17] MEDS: lisINopril 10 MG (PRINIVIL) TAB PO SCH (09:29)
[2017-02-17] MEDS: LACTULOSE SYRUP 10GM/15ML (ENULOSE) 30ML UDC PO SCH ×2 (09:29→20:04)
--- NOTE | 2017-02-17 11:24 | Cardiology Progress Note ---
Cardiology SOAP Progress Note Subjective: No cardiac complaints Objective: I&O/Vital Signs Vital Sign - Last 12Hours 02/16/17 02/17/17 02/17/17 02/17/17 23:40 04:40 07:12 08:00 Temp 97.3 99.1 98.6 Pulse 119 59 74 Resp 20 22 20 B/P (MAP) 98/63 98/59 108/57 Pulse Ox 93 93 100 O2 Delivery Nasal Cannula Nasal Cannula Nasal Cannula Nasal Cannula O2 Flow Rate 2.00 2.00 2.50 2.00 Intake and Output 02/17/17 00:00 Intake Total 2944 ml Balance 2944 ml Weight (Pounds): 129 Weight (Ounces): 8.0 Weight (Calculated Kilograms): 58.903154 Constitutional: AAO x 3, other (thin appearing) Respiratory: No accessory muscle use, other (fair to good bilateral air entry) Cardiovascular: regular rate-rhythm, S1 and S2, systolic murmur (faint TAMIKO at card base) Gastrointestional: No tender, No guarding, No rebound, audible bowel sounds Extremities: No clubbing, No cyanosis Neurologic/Psychiatric: oriented x 3, other (We did not attempt any motion at the lower limb joints. Moves upper limbs equally), grossly intact Skin: No rash on exposed areas, No ulcerations on exposed areas Results/Procedures: Labs Laboratory Tests 02/17/17 07:55: White Blood Count 8.4, Red Blood Count 3.58L, Hemoglobin 10.0#L, Hematocrit 31L , Mean Corpuscular Volume 86, Mean Corpuscular Hemoglobin 28, Mean Corpuscular Hemoglobin Concent 33, Red Cell Distribution Width 14.8H, Platelet Count 138, Mean Platelet Volume 10.3, Neutrophils (%) (Auto) 79H, Lymphocytes (%) (Auto) 10L, Monocytes (%) (Auto) 10, Eosinophils (%) (Auto) 1, Basophils (%) (Auto) 0, Neutrophils # (Auto) 6.6, Lymphocytes # (Auto) 0.8L, Monocytes # (Auto) 0.9, Eosinophils # (Auto) 0.1, Basophils # (Auto) 0.0, Sodium Level 140, Potassium Level 4.1, Chloride Level 114H, Carbon Dioxide Level 17L, Anion Gap 9, Blood Urea Nitrogen 23H, Creatinine 1.03, Estimat Glomerular Filtration Rate 51, BUN/ Creatinine Ratio 22, Glucose Level 102, Calcium Level 8.2L, Total Bilirubin 0.8 , Aspartate Amino Transf (AST/SGOT) 22, Alanine Aminotransferase (ALT/SGPT) 8, Alkaline Phosphatase 65, Total Protein 4.7L, Albumin 2.9L Microbiology 02/15/17 MRSA Screen - Final, Complete MRSA not isolated A/P: Assessment/Dx: * Normotensive * Anemia * H/o cardiomyopathy and h/o CHF (according to patient's family) the details of which are unknown: Normal EF on echocardiogram done 02/14/2017 * Family reports that a cardiac cath [facility]field about 2 years ago did not show any significant heart artery blockages * Pt doesn't report any symptoms of angina or CHF * Nonspecific abnormalities on ECG * Hypertension * R hip fracture surgery Plan: Significant decrease in hemoglobin suggest possible bleeding. Hypotension is very likely noncardiac especially with normal ejection fraction. Improved blood pressure after giving blood transfusion. No active cardiac issue. Cardiology to sign off, however, please let me know if any further assistance is required in the near future. Thank you for your consultation. Please call me if you have any questions. Kp Paul MD, FACP, FACC, FSCAI, FHRS, CCDS Interventional Cardiology Cardiac Electrophysiology Vascular Medicine and Endovascular Interventions Andrea PAUL MD Feb 17, 2017 11:24 am
--- NOTE | 2017-02-17 11:53 | Progress Note-Hospitalist ---
Progress Note HPI/CC on Admission CC: Acute left hip fracture sustained in fall at home HPI: This is an 81-year-old white female patient of Dr Enciso in [place] the presents after a direct admission transfer acceptance onto the hospitalist service from [place] emergency room. Apparently she turned around near her refrigerator door and fell over a chair and stayed on the floor for 20 minutes until her field technical assistant arrived and she was brought to the emergency room found to have left hip fracture in need of repair. Patient has required skilled care at medical [facility] [place] in the past and that is where she wants to return to on Saturday. Her daughter is at the bedside with her today. I reconciled all her home medication and she is prepared for repair this afternoon to begin therapy. She does have a history of congestive heart failure severe echocardiogram was completed and cardiology was consulted for risk stratification. Progress Notes/Assess & Plan Date Seen 02/17/17 Time Seen by Provider: 11:00 Admission Dx/Process Assessment: Acute left hip fracture in need of repair today Anxiety GERD Depression Anxiety Debility Diagonsis/Assessment & Plan Pt doing very well Patient appears to have cognitive decline unsure of how severe the dementia is Receiving home medication Appreciate cardiology input HgB 10 since given 2 units of blood yesterday Small amount of BM today so will give SSE since she is really constipation she states No fever, vital signs stable Chronically ill, pale, frail, subtle confusion but appears improved today Regular rate rhythm, clear to auscultation bilaterally diminished in the bases No edema Laboratory Tests 02/17/17 07:55 Assessment: Acute left hip fracture s/p repair uncomplicated POD # 2 Post op anemia s/p 2 units of blood due to hypotension w/dizziness yesterday Anxiety GERD Depression Chronic Debility needs NHP tomorrow [facility] Dementia? Post op constipation Plan: Continue all home meds Monitor labs Appreciate cardiology consultation [facility] Saturday Bowel regimen with SSE NEREIDA ALCANTARA DO Feb 17, 2017 11:53
[2017-02-17 12:00] VITALS: BP 109/63
--- NOTE | 2017-02-17 15:59 | Progress Note-Standard ---
Standard Progress Note Progress Notes/Assess & Plan Date Seen by Provider: Feb 17, 2017 Time Seen by Provider: 15:57 Progress/Assessment & Plan Lab, HGB 9.9 today Dressing: clean and dry. Hip: gentle PROM to hip without undue discomfort, and with smooth motion. Assessment: Stable POD #2 with post op anemia resolved after transfusion.. Plan: Continue Phy Therapy, Full weight bearing. Final Diagnosis Status Post ORIF of left hip intertrochanteric fracture. NILAM NELSON MD Feb 17, 2017 3:59 pm
[2017-02-17 20:36] VITALS: BP 153/72
[2017-02-17 21:53] VITALS: BP 136/68
[2017-02-17] MEDS: ALPRAZolam 1 MG (XANAX) TAB PO PRN (21:54)
[2017-02-18 00:10] VITALS: BP 150/85
[2017-02-18] MEDS: NS IV 1000 ML 1,000 ML IV SCH (00:57)
--- NOTE | 2017-02-18 01:19 | OPERATIVE REPORT ---
PROCEDURE PHYSICIAN: NILAM PRINCE DATE OF PROCEDURE: 02/15/2017 PREOPERATIVE DIAGNOSIS: Left hip intertrochanteric fracture. POSTOPERATIVE DIAGNOSIS: Left hip intertrochanteric fracture. PROCEDURE: Surgery on the left hip to lineup bone and fix with hardware (open reduction and internal fixation). SURGEON: Dr. Nilam Prince ANESTHESIA: General. COMPLICATIONS: None. WARP CHANGER: None. BLOOD LOSS: 100 mL or less. PERIOPERATIVE MEDICATIONS: 2 grams of Ancef preoperatively. 1 gram of tranexamic acid at the early part of the case. 30 mL of 0.5% Marcaine with epinephrine was given before prep. FINDINGS: We had to internally rotate quite a bit to get good alignment while looking at the lateral but the final count strike looked quite good with good 80% opposition at the fracture site and good compression by the compression mechanism by the helical blade. NARRATIVE SUMMARY: The patient was taken to operating room number 1 after the standard nursing and anesthesia, preoperative identification evaluation and counseling. The left lower extremity was prepared and draped in the usual orthopedic fashion. The right lower extremity was carefully prepared and held in the lithotomy position, care being taken because of the previous history of surgery on the right hip. A timeout was completed, prep and drape was done and a longitudinal incision was made above the greater trochanter. Soft tissue dissection was accomplished down to the greater trochanter and held by passing a K wire and then a reaming and then the intramedullary nail. This was positioned under a C-arm visualization. Rotation was adjusted and the guide pin when down the neck and into the center portion of the head of the femur. This was followed by a lateral drilling and then followed by placement of the helical blade. The helical blade was attached in a dynamic fashion and then I compressed the fracture about 2 or 3 mm. The wound was re-irrigated and then closed with 2 layers. The patient was then given a gentle compressive dressing and returned to the recovery room in stable condition. Job ID: [id number] Dictated Date: 02/15/2017 17:13:04 Forgesmith Date: 02/18/2017 01:06:09 / pranay JEAN
[2017-02-18 03:45] VITALS: BP 135/65
[2017-02-18] MEDS: PANTOPRAZOLE 40 MG (PROTONIX) TAB PO SCH (05:36)
[2017-02-18] MEDS: HYDROcodone/APAP 5 MG/325 MG (LORTAB) TAB PO PRN (05:36)
[2017-02-18 08:00] VITALS: BP 110/56
[2017-02-18] MEDS: LACTULOSE SYRUP 10GM/15ML (ENULOSE) 30ML UDC PO SCH (08:40)
[2017-02-18] MEDS: CYANOCOBALAMIN 500 MCG TAB (VITAMIN B-12) PO SCH (08:40)
[2017-02-18] MEDS: GABAPENTIN 100 MG (NEURONTIN) CAP PO SCH (08:40)
[2017-02-18] MEDS: lisINopril 10 MG (PRINIVIL) TAB PO SCH (08:40)
--- NOTE | 2017-02-18 09:04 | Progress Note-Cardiology ---
Cardiology SOAP Progress Note Subjective: Sitting up in bed. No c/o CP, SOA, palpitations. States she is feeling better this morning. Objective: I&O/Vital Signs Vital Sign - Last 12Hours 02/17/17 02/18/17 02/18/17 02/18/17 21:53 00:10 03:45 08:00 Temp 98.4 98.0 98.5 Pulse 97 89 118 Resp 20 20 16 B/P (MAP) 136/68 150/85 135/65 110/56 Pulse Ox 98 98 97 O2 Delivery Nasal Cannula Nasal Cannula Nasal Cannula O2 Flow Rate 2.00 2.00 2.00 02/18/17 08:52 O2 Delivery Room Air Intake and Output 02/18/17 00:00 Intake Total 1230 ml Balance 1230 ml Weight (Pounds): 129 Weight (Ounces): 8.0 Weight (Calculated Kilograms): 58.053076 Constitutional: AAO x 3, other (thin appearing) Respiratory: No accessory muscle use, lungs clear to auscultation Cardiovascular: regular rate-rhythm, S1 and S2, systolic murmur (faint TAMIKO at card base) Gastrointestional: No tender, No guarding, No rebound, audible bowel sounds Extremities: No clubbing, No cyanosis Neurologic/Psychiatric: oriented x 3, grossly intact Skin: No rash on exposed areas, No ulcerations on exposed areas Results/Procedures: Labs Microbiology 02/15/17 MRSA Screen - Final, Complete MRSA not isolated A/P: Assessment: * Post-op hypotension likely due to bev-op volume and blood loss, treated with transfusions and iv fluids, now recovered * H/o cardiomyopathy and h/o CHF (according to patient's family) but echo at this hospital has shown normal LVEF * Family reports that a cardiac cath [facility] about 2 years ago did not show any significant heart artery blockages * Pt doesn't report any symptoms of angina or CHF * Nonspecific abnormalities on ECG * Hypertension * R hip fracture post surgery on 02-15-17 Plan: * Post op anemia - transfused 2 units PRBC * Records from [facility] have not been received * BP has improved today * Stop IVF * Monitor lab Physician Assessment Physician Assessment Lungs: good bilat air entry Cor: reg Ext: no c/c/e A&R * As documented in our note above that I updated (italics) and as noted below * D/c iv fluids * DVT prophylaxis is strongly recommended * Monitor labs * I spoke with her and answered questions SHAHEEN CISNEROS GENETIC PHYSICIAN Feb 18, 2017 09:04 ANDREW FLAHERTY MD [facility] CCDS Feb 18, 2017 09:22
[2017-02-18 09:50] LABS: MEAN PLATELET VOLUME 9.4 FL (7.4-10.4); RED BLOOD COUNT 3.68 10^6/uL (4.35-5.85); RED CELL DISTRIBUTION WIDTH 14.8 % (10.0-14.5); WHITE BLOOD COUNT 5.1 10^3/uL (4.3-11.0)
[2017-02-18] MEDS ORDERED: HYDR-3812 PO (10:00)
[2017-02-18] MEDS ORDERED: ENOX40DI8 SC (10:00)
[2017-02-18] MEDS ORDERED: ALPR1TAB7 PO (10:00)
--- NOTE | 2017-02-18 10:02 | Discharge Inst-Skilled Nursing ---
Discharge Inst-Skilled NF Chief Complaint CC: Acute left hip fracture sustained in fall at home HPI: This is an 81-year-old white female patient of Dr Enciso in [place] the presents after a direct admission transfer acceptance onto the hospitalist service from [place] emergency room. Apparently she turned around near her refrigerator door and fell over a chair and stayed on the floor for 20 minutes until her hot knife cutter arrived and she was brought to the emergency room found to have left hip fracture in need of repair. Patient has required skilled care at medical [place] [facility] [place] in the past and that is where she wants to return to on Saturday. Her daughter is at the bedside with her today. I reconciled all her home medication and she is prepared for repair this afternoon to begin therapy. She does have a history of congestive heart failure severe echocardiogram was completed and cardiology was consulted for risk stratification. Patient Instructions Patient Problems: Left hip fracture Tachycardia Anemia Debility Goal: Return back home Consult/Follow Up/Orders Follow Up Appt.: Dr Mckeon 2 weeks Skilled NF Admit to: [facility] Certification (SNF) I certify that SNF services are required to be given on an inpatient basis because of the above named patient's need for custodial care on a continuing basis for the conditions(s) for which he/she was receiving inpatient hospital services prior to his/her transfer to the SNF. [facility] Facility Order: Nursing Services, [place] Taper Helper-Evaluate & Treat, Physical Therapy-Evaluate & Treat, Speech Language-Evaluate & Treat Discharge Diet: No Restrictions New & Resume Previous Orders Lachelle Quigley Feb 18, 2017 10:01 Pneu Vac Indicated: Yes LACHELLE QUIGLEY DO Feb 18, 2017 10:02
--- NOTE | 2017-02-18 10:02 | Discharge Summary-Hospitalist ---
Diagnosis/Chief Complaint Date of Admission Feb 14, 2017 at 17:36 Date of Discharge Discharge Date: Feb 18, 2017 Admission Diagnosis Assessment: Acute left hip fracture in need of repair today Anxiety GERD Depression Anxiety Debility Discharge Diagnosis Assessment: Acute left hip fracture s/p repair uncomplicated POD # 3 Post op anemia s/p 2 units of blood due to hypotension w/dizziness Anxiety GERD Depression Chronic Debility needs [facility] Saturday ML Regina Waddell Dementia? Post op constipation Plan: Continue all home meds Monitor labs Appreciate cardiology consultation ML of Regina Waddell Saturday Bowel regimen with SSE Discharge Summary Discharge Physical Examination Allergies: Coded Allergies: Penicillins (Verified Allergy, Unknown, RASH, 02/14/17) oxycodone (Verified Allergy, Unknown, NAUSEA, 02/14/17) Vitals & I&Os Vital Signs Date Time Temp Pulse Resp B/P (MAP) Pulse Ox O2 Delivery O2 Flow Rate FiO2 02/18/17 10:17 98 Nasal Cannula 3.00 02/18/17 08:00 98.5 118 16 110/56 Hospital Course Hospital course: patient was admitted with acute hip fracture sustained during a fall at her house. Chronic debility was noted prior to hip fracture which necessitated a great deal of outside help in order for her to remain at home. Dementia was noted at baseline. ECHO obtained along with Cardiology consultation due to CHF hx and that was noted to have EF 55%. Tachycardia prompted update to Cardiology which resulted in IVF bolus for hypotension but she stabilized but did require 2 units of blood the following day for low hgb. Overall her hospital stay was uneventful and post op constipation resolved after meds given and she was deemed stable for DC while maintained on Lovenox for DVT Px for 2 weeks while at [facility] for rehab. Prognosis guarded due to dementia and chronic debility. Labs (last 24 hrs) Laboratory Tests 02/18/17 09:35: White Blood Count 5.1, Red Blood Count 3.68L, Hemoglobin 10.2L, Hematocrit 32L, Mean Corpuscular Volume 87, Mean Corpuscular Hemoglobin 28, Mean Corpuscular Hemoglobin Concent 32, Red Cell Distribution Width 14.8H, Platelet Count 155, Mean Platelet Volume 9.4, Prothrombin Time 14.2, INR Comment 1.1, Sodium Level 144, Potassium Level 3.6, Chloride Level 116H, Carbon Dioxide Level 21, Anion Gap 7, Blood Urea Nitrogen 13, Creatinine 0.79, Estimat Glomerular Filtration Rate > 60, BUN/Creatinine Ratio 16, Glucose Level 93, Calcium Level 8.6, Total Bilirubin 0.7, Aspartate Amino Transf (AST/SGOT) 21, Alanine Aminotransferase ( ALT/SGPT) 6, Alkaline Phosphatase 73, Total Protein 5.0L, Albumin 2.9L 02/18/17 12:45: Lab Scanned Report Transfusion Reaction Form Microbiology 02/15/17 MRSA Screen - Final, Complete MRSA not isolated Pending Labs Laboratory Tests 02/18/17 09:35: White Blood Count 5.1, Red Blood Count 3.68, Hemoglobin 10.2, Hematocrit 32, Mean Corpuscular Volume 87, Mean Corpuscular Hemoglobin 28, Mean Corpuscular Hemoglobin Concent 32, Red Cell Distribution Width 14.8, Platelet Count 155, Mean Platelet Volume 9.4, Prothrombin Time 14.2, INR Comment 1.1, Sodium Level 144, Potassium Level 3.6, Chloride Level 116, Carbon Dioxide Level 21, Anion Gap 7, Blood Urea Nitrogen 13, Creatinine 0.79, Estimat Glomerular Filtration Rate > 60, BUN/Creatinine Ratio 16, Glucose Level 93, Calcium Level 8.6, Total Bilirubin 0.7, Aspartate Amino Transf (AST/SGOT) 21, Alanine Aminotransferase ( ALT/SGPT) 6, Alkaline Phosphatase 73, Total Protein 5.0, Albumin 2.9 02/18/17 12:45: Lab Scanned Report Transfusion Reaction Form Discharge Home Medications: Active Scripts Active Enoxaparin Sodium 40 Mg/0.4 Ml Syringe 40 Mg SC Q24H 14 Days Hydrocodon -Acetaminophen 5-325 (Hydrocodone/Acetaminophen) 1 Each Tablet 1 Tab PO 0730,0800 PRN TAKES 1 TABLET IN THE MORNING THEN TAKES A SECOND DOSE 30 MINUTES LATER Alprazolam 1 Mg Tablet 1 Mg PO BID PRN Reported Vitamin B-12 (Cyanocobalamin (Vitamin B-12)) 1,000 Mcg/1 Ml Drops 1,000 Mcg PO DAILY Senokot-S Tablet (Sennosides/Docusate Sodium) 1 Each Tablet 2 Tab PO DAILY PRN Lisinopril 10 Mg Tablet 10 Mg PO DAILY Myrbetriq (Mirabegron) 50 Mg Tab.er.24h 50 Mg PO HS Pantoprazole Sodium 40 Mg Tablet.dr 40 Mg PO DAILY Gabapentin 100 Mg Capsule 100 Mg PO BID Aspir 81 (Aspirin) 81 Mg Tablet. 81 Mg PO DAILY Instructions to patient/family Please see electonic discharge instructions given to patient. Clinical Quality Measures DVT/VTE Risk/Contraindication: Risk Factor Score Per Nursin RFS Level Per Nursing on Admit: 4+=Very High Contraindications-Pharm: Other *list below* Other: surgery tomorrow NEREIDA ALCANTARA DO Feb 18, 2017 10:02
[2017-02-18 10:05] LABS: INR 1.1 (0.8-1.4); PROTHROMBIN TIME PATIENT 14.2 SEC (12.2-14.7)
[2017-02-18 10:10] LABS: ALANINE AMINOTRANSFERASE 6 U/L (0-55); ALBUMIN 2.9 GM/DL (3.2-4.5); ANION GAP 7 MMOL/L (5-14); ASPARTATE AMINO TRANSFERASE 21 U/L (5-34); BILIRUBIN,TOTAL 0.7 MG/DL (0.1-1.0); BLOOD UREA NITROGEN 13 MG/DL (7-18); BUN/CREATININE RATIO 16; CALCIUM 8.6 MG/DL (8.5-10.1); CARBON DIOXIDE 21 MMOL/L (21-32); CHLORIDE 116 MMOL/L (98-107); CREATININE SERUM 0.79 MG/DL (0.60-1.30); GFR ESTIMATED > 60; GLUCOSE 93 MG/DL (70-105); POTASSIUM 3.6 MMOL/L (3.6-5.0); SODIUM 144 MMOL/L (135-145)
--- NOTE | 2017-02-18 10:34 | Physical Therapy Daily Note ---
PT Daily Note-Current Subjective Patient reluctantly agrees to PT. Pain Numeric Pain Scale: 10-Worst Possible Pain Location: Left Pain Description: Acute Mental Status Patient Orientation: Normal For Age Attachments: Oxygen, IV Transfers Functional [place] Measure 0=Not Assessed/NA 4=Minimal Assistance 1=Total Assistance 5=Supervision or Setup 2=Maximal Assistance 6=Modified [place] 3=Moderate Assistance 7=Complete IndependenceIRFPAI Quality Coding Scale 6 Independent with activity with or without an assistive device 5 Patient requires set up or clean up by helper. Patient completes activity by themselves 4 Supervision or touching assist (CGA). Volin provide cues , steadying assist 3 The helper provides less than half the effort to complete the activity 2 The helper provides more than half the effort to complete the activity 1 Dependent. The helper does all the effort to complete an activity 7 Patient refused to complete or attempt activity 9 The patient did not perform the activity before the current illness or injury 88 Not attempted due to Medical conditions or safety concerns Transfers (B, C, W/C) (FIM): 2 Scootin Rollin Supine to/from Sit: 2 Sit to/from Stand: 2 Bed to/from Chair: 2 max assist for all mobility with patient unable to weight shift to left to advance right LE. Patient requires skilled verbal instruction to complete all functional tasks. Exercises Supine Ex: Ankle pumps, Heel Slides, Hip abd/add Supine Reps: 10 (PROM left LE due to pain and all minimal movement) Seated Therapy Exercises: Ankle pumps, Long arc quads Seated Reps: 10 (AAROM left LE due to pain) Assessment Patient requires much encouragement to participate with PT and to complete all functional tasks. Plan dismissal to CT on this date per RN. PT Short Term Goals Short Term Goals Time Frame: Mar 02, 2017 Transfers (B,C,W/C) (FIM): 5 Gait (FIM): 5 Distance (FIM): 3=150 ft Gait Level of Assist: 5 Gait Assistive Device: FWW PT Plan Treatment/Plan Treatment Plan: Continue Plan of Care Treatment Plan: Bed Mobility, Functional Activity Ning, Functional Strength, Gait, Safety, Therapeutic Exercise, Transfers Treatment Duration: Mar 02, 2017 Frequency: At least 5-7 days/Wk (IRF) Estimated Hrs Per Day: 1 hour per day Patient and/or Family Agrees t: Yes Time/GCodes Time In: 935 Time Out: 958 Total Billed Treatment Time: 23 Total Billed Treatment 1 visit FA 13 min EX 10 min GER SOLIS PT Feb 18, 2017 10:34
[2017-02-18] MEDS ORDERED: ENOXAPARIN 40 MG/0.4 ML (LOVENOX) SYR SC SCH (11:00)
[2017-02-18] MEDS ORDERED: MIRABEGRON 50 MG TABLET (MYRBETRIQ) NON-FORMULARY PO SCH (21:00)
== END 2017-02-18 14:12 | DRG 481 ==
LOC: 4TH 17:36
PROVIDERS: ADMIT Internal Medicine; ATTEND Internal Medicine
PROC: 0QS704Z Reposition Left Upper Femur with Internal Fixation Device, Open Approach (ICD-10-PCS; principal; 2017-02-15 15:37)
DX: S72.142A Displaced intertrochanteric fracture of left femur, initial encounter for closed fracture (principal); D62 Acute posthemorrhagic anemia; F03.90 Unspecified dementia, unspecified severity, without behavioral disturbance, psychotic disturbance, mood disturbance, and anxiety; I10 Essential (primary) hypertension; K59.09 Other constipation; F41.9 Anxiety disorder, unspecified; K21.9 Gastro-esophageal reflux disease without esophagitis; R53.81 Other malaise; W18.09XA Striking against other object with subsequent fall, initial encounter; Y92.010 Kitchen of single-family (private) house as the place of occurrence of the external cause; Z87.891 Personal history of nicotine dependence
CPT/HCPCS: 36415; 80053; 85025; 85027; 85610; 86850; 86900; 86901; 86920; 87081; 93005; 93306; 94664; 94760

== ENCOUNTER 2018-11-08 12:11 | Emergency (ER) | payer MEDICARE, BC ==
[~2018-11-08] VITALS: Ht 170.2 cm; Wt 59.0 kg
[~2018-11-08 12:11] MED LIST: ACHD5005 PO; ALPR1TAB7 PO; ASPI-586 PO; CYAN100081 PO; ENOX40DI8 SC; GABA-486 PO; LISI10TA2 PO; MIRA50TA PO; PANT40TA3 PO; SENN-40 PO
--- NOTE | 2018-11-08 12:34 | ED Abdominal Pain ---
General Chief Complaint: General Problems/Pain Stated Complaint: BREAST PAIN ON RT SIDE Source of Information: Patient Exam Limitations: No Limitations History of Present Illness Date Seen by Provider: Nov 08, 2018 Time Seen by Provider: 12:20 Initial Comments 83-year-old female presents with right breast pain. She reports the pains in her right breast and right upper quadrant. The pain gets worse with deep breath. There is a mild radiation around to her back but she has chronic back pain. She denies any nausea, vomiting, fever, chills, cough or other systemic complaints. She reports that the pain started 3 days ago and has gotten worse. She does not have any rash. Allergies and Home Medications Allergies Coded Allergies: Penicillins (Verified Allergy, Unknown, RASH, 02/14/17) oxycodone (Verified Allergy, Unknown, NAUSEA, 02/14/17) Home Medications Alprazolam 1 Mg Tablet, 1 MG PO BID PRN for ANXIETY Prescribed by: NEREIDA ALCANTARA on 02/18/17 1000 Aspirin 81 Mg Tablet.dr, 81 MG PO DAILY, (Reported) Cyanocobalamin (Vitamin B-12) 1,000 Mcg/1 Ml Drops, 1,000 MCG PO DAILY, ( Reported) Enoxaparin Sodium 40 Mg/0.4 Ml Syringe, 40 MG SC Q24H Prescribed by: NEREIDA ALCANTARA on 02/18/17 1000 Gabapentin 100 Mg Capsule, 100 MG PO BID, (Reported) Hydrocodone Bit/Acetaminophen 1 Each Tablet, 1 TAB PO 0730,0800 PRN for PAIN- MODERATE TAKES 1 TABLET IN THE MORNING THEN TAKES A SECOND DOSE 30 MINUTES LATER Prescribed by: NEREIDA ALCANTARA on 02/18/17 1000 Lisinopril 10 Mg Tablet, 10 MG PO DAILY, (Reported) Mirabegron 50 Mg Tab.er.24h, 50 MG PO HS, (Reported) Pantoprazole Sodium 40 Mg Tablet.dr, 40 MG PO DAILY, (Reported) Sennosides/Docusate Sodium 1 Each Tablet, 2 TAB PO DAILY PRN for CONSTIPATION- 6TH LINE, (Reported) Patient Home Medication List Home Medication List Reviewed: Yes Review of Systems Review of Systems Constitutional: No chills, No fever Respiratory: Denies Cough Cardiovascular: Chest Pain (right breast) Gastrointestinal: Abdominal Pain (RUQ); Denies Diarrhea, Denies Nausea, Denies Vomiting Genitourinary: No Symptoms Reported Musculoskeletal: no symptoms reported Skin: no symptoms reported Psychiatric/Neurological: No Symptoms Reported Past Xthpbeg-Ebmqls-Zucrpa Hx Past Med/Social Hx: Reviewed Nursing Past Med/Soc Hx Patient Social History Type Used: Cigarettes Former Smoker, Quit: Jul 15, 1999 Recent Hopitalizations: No Seasonal Allergies Seasonal Allergies: No Past Medical History Surgeries: Yes (BLADDER TIE UP) Orthopedic Respiratory: No Cardiac: Yes Cardiomyopathy Neurological: No Genitourinary: Yes Bladder Infection, UTI-Chronic Gastrointestinal: Yes Chronic Constipation, Hiatal Hernia, Gall Bladder Disease Musculoskeletal: Yes Arthritis, Fractures Endocrine: No HEENT: Yes Hearing Impairment: Hard of Hearing Cancer: No Psychosocial: Yes Anxiety Integumentary: No Blood Disorders: No Family Medical History Diabetes mellitus G8 SISTER Kidney disease 19 FATHER Parkinson's disease 19 FATHER Physical Exam Vital Signs Vital Signs - First Documented 11/08/18 12:20 Temp 98.0 Pulse 78 Resp 18 B/P (MAP) 96/77 (83) Pulse Ox 99 O2 Delivery Room Air Capillary Refill : Height/Weight/BMI Height: 5'8.00" Weight: 129lbs. 8.0oz. 58.074367zr; 19.7 BMI Method: General Appearance: WD/WN, other (uncomfortable ) HEENT: PERRL/EOMI Neck: supple Respiratory: lungs clear, normal breath sounds, no respiratory distress Cardiovascular: regular rate, rhythm, no edema Gastrointestinal: soft, other (Mild tenderness that radiates to the right upper quadrant/right breast with palpitation) Extremities: normal range of motion, non-tender Back: No decreased range of motion Neurologic/Psychiatric: high school coordinator II-XII nml as tested, normal mood/affect, oriented x 3 Skin: normal color, warm/dry Focused Exam Lactate Level 11/08/18 12:50: Lactic Acid Level 0.55 Lactic Acid Level Laboratory Tests Test 11/08/18 12:50 Lactic Acid Level 0.55 MMOL/L (0.50-2.00) Progress/Results/Core Measures Results/Orders Lab Results Laboratory Tests Test 11/08/18 12:50 11/08/18 13:10 Range/Units White Blood Count 4.0 L 4.3-11.0 10^3/uL Red Blood Count 4.82 4.35-5.85 10^6/uL Hemoglobin 14.0 11.5-16.0 G/DL Hematocrit 43 35-52 % Mean Corpuscular Volume 90 80-99 FL Mean Corpuscular Hemoglobin 29 25-34 PG Mean Corpuscular Hemoglobin Concent 32 32-36 G/DL Red Cell Distribution Width 13.0 10.0-14.5 % Platelet Count 166 130-400 10^3/uL Mean Platelet Volume 9.2 7.4-10.4 FL Neutrophils (%) (Auto) 64 42-75 % Lymphocytes (%) (Auto) 17 12-44 % Monocytes (%) (Auto) 17 H 0-12 % Eosinophils (%) (Auto) 2 0-10 % Basophils (%) (Auto) 1 0-10 % Neutrophils # (Auto) 2.5 1.8-7.8 X 10^3 Lymphocytes # (Auto) 0.7 L 1.0-4.0 X 10^3 Monocytes # (Auto) 0.7 0.0-1.0 X 10^3 Eosinophils # (Auto) 0.1 0.0-0.3 10^3/uL Basophils # (Auto) 0.0 0.0-0.1 10^3/uL Sodium Level 144 135-145 MMOL/L Potassium Level 4.4 3.6-5.0 MMOL/L Chloride Level 106 98-107 MMOL/L Carbon Dioxide Level 19 L 21-32 MMOL/L Anion Gap 19 H 5-14 MMOL/L Blood Urea Nitrogen 18 7-18 MG/DL Creatinine 0.98 0.60-1.30 MG/DL Estimat Glomerular Filtration Rate 54 BUN/Creatinine Ratio 18 Glucose Level 110 H 70-105 MG/DL Lactic Acid Level 0.55 0.50-2.00 MMOL/L Calcium Level 9.0 8.5-10.1 MG/DL Corrected Calcium 9.2 8.5-10.1 MG/DL Total Bilirubin 0.6 0.1-1.0 MG/DL Aspartate Amino Transf (AST/SGOT) 14 5-34 U/L Alanine Aminotransferase (ALT/SGPT) 5 0-55 U/L Alkaline Phosphatase 75 40-136 U/L Troponin T 24 H <=10 NG/L Total Protein 6.1 L 6.4-8.2 GM/DL Albumin 3.7 3.2-4.5 GM/DL Lipase 20 8-78 U/L Urine Color YELLOW Urine Clarity CLEAR Urine pH 6.0 5-9 Urine Specific [place] 1.015 L 1.016-1.022 Urine Protein NEGATIVE NEGATIVE Urine Glucose (UA) NEGATIVE NEGATIVE Urine Ketones NEGATIVE NEGATIVE Urine Nitrite NEGATIVE NEGATIVE Urine Bilirubin NEGATIVE NEGATIVE Urine Urobilinogen 0.2 NORMAL MG/DL Urine Leukocyte Esterase NEGATIVE NEGATIVE Urine RBC (Auto) NEGATIVE NEGATIVE Urine RBC NONE /HPF Urine WBC NONE /HPF Urine Squamous Epithelial Cells 2-5 /HPF Urine Crystals NONE /LPF Urine Bacteria NONE /HPF Urine Casts NONE /LPF Urine Mucus NEGATIVE /LPF Urine Culture Indicated NO My Orders Orders - YAN,RITA L DO Cbc With Automated Diff (11/08/18 12:28) Comprehensive Metabolic Panel (11/08/18 12:28) Lactic Acid Analyzer (11/08/18 12:28) Lipase (11/08/18 12:28) Ua Culture If Indicated (11/08/18 12:28) Troponin T (11/08/18 12:28) Acute Abd Series (11/08/18 12:28) Ekg Tracing (11/08/18 13:28) Ct Abdomen/Pelvis W (11/08/18 13:42) Iohexol Injection (Omnipaque 350 Mg/Ml 1 (11/08/18 14:00) Received Contrast (Hold Metformin- Contr (11/08/18 14:00) Sodium Chloride Flush (Catheter Flush Sy (11/08/18 14:00) Ns (Ivpb) (Sodium Chloride 0.9% Ivpb Bag (11/08/18 14:00) Medications Given in ED Current Medications Medications Dose Ordered Sig/Taylor Route Start Time Stop Time Status Last Admin Dose Admin Iohexol 100 ml ONCE ONCE IV 11/08/18 14:00 11/08/18 14:01 DC 11/08/18 14:25 100 ML Sodium Chloride 10 ml NEEDED PRN IV 11/08/18 14:00 11/08/18 15:55 DC 11/08/18 14:25 10 ML Sodium Chloride 100 ml ONCE ONCE IV 11/08/18 14:00 11/08/18 14:01 DC 11/08/18 14:25 100 ML Vital Signs/I&O 11/08/18 11/08/18 12:20 15:49 Temp 98.0 100.2 Pulse 78 93 Resp 18 20 B/P (MAP) 96/77 (83) 161/55 (90) Pulse Ox 99 94 O2 Delivery Room Air Room Air Progress Progress Note : Progress Note Review the labs and imaging with patient. Patient's right upper quadrant pain/ right breast pain is likely from a combination maybe some pleuritic chest pain from her pleural effusion and the gastritis is seen on CT. I recommend that she try some Naprosyn 500 mg twice a day for a couple days for the pleuritic chest pain she is currently on Protonix. Recommend that they also add some Maalox or similar [id number] medication for her gastritis. She should follow-up with her primary care physician in 3-4 days if symptoms are not improving for further evaluation. Initial ECG Impression Date: Nov 08, 2018 Initial ECG Impression Time: 13:37 Initial ECG Rhythm: Normal Sinus Initial ECG Intervals: Normal Initial ECG Impression: Nonspecific Changes Initial ECG Comparisson: No Previous ECG Available Diagnostic Imaging Diagonstic Imaging: Xray, CT Plain Films/CT/US/NM/MRI: chest, abdomen Departure Impression Primary Impression: Gastritis and duodenitis Additional Impression: Pleural effusion on right Disposition: 01 HOME, SELF-CARE Condition: Stable Departure-Patient Inst. Referrals: SELF,MARY KENNEDY (PCP/Family) Primary Care Physician Patient Instructions: Gastritis (DC), Pleural Effusion Add. Discharge Instructions: Naprosyn 500 mg twice a day as needed for pleuritic pain. Maalox or similar medication as needed for gastritis and duodenitis follow-up with primary care physician in 3-4 days if no improvement in symptoms or worsening symptoms. All discharge instructions reviewed with patient and/or family. Voiced understanding. RITA YAN DO Nov 08, 2018 12:34
[2018-11-08 13:07] LABS: HEMATOCRIT 43 % (35-52); MEAN CORPUSCULAR HEMOGLOBIN 29 PG (25-34); MEAN CORPUSCULAR VOLUME 90 FL (80-99)
[2018-11-08 13:08] LABS: BASOPHILS % (AUTO) 1 % (0-10); EOSINOPHILS # (AUTO) 0.1 10^3/uL (0.0-0.3); EOSINOPHILS % (AUTO) 2 % (0-10); LYMPHOCYTES # (AUTO) 0.7 X 10^3 (1.0-4.0); LYMPHOCYTES % (AUTO) 17 % (12-44); MEAN CORPUSCULAR HGB CONC 32 G/DL (32-36); MEAN PLATELET VOLUME 9.2 FL (7.4-10.4); MONOCYTES # (AUTO) 0.7 X 10^3 (0.0-1.0); MONOCYTES % (AUTO) 17 % (0-12); NEUTROPHILS # (AUTO) 2.5 X 10^3 (1.8-7.8); NEUTROPHILS % (AUTO) 64 % (42-75); PLATELET COUNT 166 10^3/uL (130-400)
[2018-11-08 13:26] LABS: ALBUMIN 3.7 GM/DL (3.2-4.5); BILIRUBIN,TOTAL 0.6 MG/DL (0.1-1.0); CREATININE SERUM 0.98 MG/DL (0.60-1.30); POTASSIUM 4.4 MMOL/L (3.6-5.0); TOTAL PROTEIN 6.1 GM/DL (6.4-8.2)
[2018-11-08 13:29] LABS: BILIRUBIN,URINE NEGATIVE (NEGATIVE); CLARITY,URINE CLEAR; COLOR,URINE YELLOW; GLUCOSE, URINE (UA) NEGATIVE (NEGATIVE); KETONES,URINE NEGATIVE (NEGATIVE); LEUKOCYTE ESTERASE ,URINE NEGATIVE (NEGATIVE); NITRITE,URINE NEGATIVE (NEGATIVE); PROTEIN,URINE NEGATIVE (NEGATIVE); UROBILINOGEN,URINE 0.2 MG/DL (NORMAL)
--- NOTE | 2018-11-08 13:42 | Diagnostic Imaging Report ---
INDICATION: Pain under breast. Three views were obtained. FINDINGS: The heart size is normal. There is some patchy bibasilar atelectasis and pneumonitis. Bowel gas pattern is nonspecific. No free air. There are no abnormal abdominal calcification. IMPRESSION: Patchy bibasilar atelectasis and pneumonitis. Nonspecific bowel gas pattern. Dictated by: Dictated on workstation # [id number]
[2018-11-08] MEDS ORDERED: NS 100 ML (IVPB) BAG IV ONE (14:00)
[2018-11-08] MEDS ORDERED: CATHETER FLUSH 10 ML SYR IV PRN (14:00)
[2018-11-08] MEDS ORDERED: IOHEXOL 350 MG/ML 100 ML (OMNIPAQUE 350) VIAL IV ONE (14:00)
[2018-11-08] MEDS ORDERED: HOLD METFORMIN - RECEIVED CONTRAST 20 ML VIAL IV SCH (14:00)
--- NOTE | 2018-11-08 14:57 | Diagnostic Imaging Report ---
PROCEDURE: CT abdomen and pelvis with contrast. TECHNIQUE: Multiple contiguous axial images were obtained through the abdomen and pelvis after administration of intravenous contrast. Auto Exposure Controls were utilized during the CT exam to meet ALARA standards for radiation dose reduction. Indication: Epigastric and upper right abdominal pain. Comparison: None. Discussion: Small right pleural effusion is noted. Atelectasis is present within the lung bases. Large hiatal hernia. Normal heart size. No pericardial fluid. The gallbladder, liver, pancreas, spleen, and adrenal glands are unremarkable. The ureters are somewhat dilated though appear patent and this is likely chronic. Urinary bladder is unremarkable as visualized. The uterus appears to be surgically absent. Mild constipation. No obstruction, pneumatosis, pneumoperitoneum. No ascites or pathologically enlarged lymph nodes are identified. Diverticulosis with no secondary evidence for diverticulitis. The aorta is normal in caliber. Wall thickening of the distal stomach and proximal duodenum, likely gastritis. No perforation identified. No ascites or pathologically enlarged lymph nodes identified. Multiple compression fractures are noted throughout the thoracic and lumbar spine involving the T8, T9, T10, T11, T12, L1, L2, L3, and L4, age indeterminate. Advanced degenerative disease is noted throughout. Previous wide laminectomy noted within the lower lumbar spine. Age-indeterminate inferior and superior right pubic rami fractures. Right hip prosthesis is noted. Advanced degenerative disease is present within the bilateral sacroiliac joints. Impression: 1. Right pleural effusion. 2. Wall thickening of the distal stomach and proximal duodenum, possible gastritis. Large hiatal hernia. 3. Age-indeterminate thoracolumbar spine compression fractures as described. Age-indeterminate right obturator ring fractures. Dictated by: Dictated on workstation # [id number]
--- NOTE | 2018-11-08 15:34 | NUR ---
Patient discharged back to [facility]. Report called to AMALIA Hector with understanding verbalized. Patient escorted to her daughters personal vehicle via wheelchair accompanied by staff and family. Patients daughter is transporting her back to [facility]. Discharge instructions also reviewed with patient and her daughter with understanding verbalized. Discharge instructions, prescriptions, and personal belongings in hand at time of discharge.
[2018-11-08 15:49] VITALS: BP 161/55
== END 2018-11-08 15:49 | disposition home or self-care (01) ==
LOC: EDUNIT# 12:11 → ER FS 12:13
DX: K29.70 Gastritis, unspecified, without bleeding (principal); K29.80 Duodenitis without bleeding; J90 Pleural effusion, not elsewhere classified; I42.9 Cardiomyopathy, unspecified; F41.9 Anxiety disorder, unspecified; Z87.448 Personal history of other diseases of urinary system; Z87.19 Personal history of other diseases of the digestive system; Z87.440 Personal history of urinary (tract) infections; Z88.0 Allergy status to penicillin; Z88.5 Allergy status to narcotic agent; Z79.82 Long term (current) use of aspirin; Z87.891 Personal history of nicotine dependence
CPT/HCPCS: 36415; 74022; 74177; 80053; 81000; 83605; 83690; 84484; 85025

== ENCOUNTER 2019-01-29 22:32 | Emergency (ER) | payer MEDICARE, BC ==
[~2019-01-29] VITALS: Ht 170.2 cm; Wt 61.2 kg
--- NOTE | 2019-01-29 22:44 | ED Hip Pain/Injury ---
General Chief Complaint: Hip/Pelvic Problems Stated Complaint: RT HIP PAIN Source: EMS History of Present Illness Date Seen by Provider: Jan 29, 2019 Time Seen by Provider: 22:30 Initial Comments The patient is a pleasant 83-year-old female brought in by EMS from [facility] for evaluation of right hip pain. She had a fall onto the right hip and EMS was called. They were able to move the hip through full range of motion and only noted some soft tissue soreness laterally. They did not note any shortening or external rotation in the pelvis felt stable. The [facility] wanted the patient brought in to have imaging to confirm there was no fracture. Upon arrival the patient is alert, calm, and appears to be in no distress. She points of the right lateral upper thigh/hip as the area of pain. 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 The patient did not hit her head or lose consciousness and has no other complaints at this time. Timing/Duration: just prior to arrival Severity: mild Location: hip (R) Method of Injury: fell Modifying Factors: Improves With Movement (makes the pain slightly worse), Improves With Rest (makes the pain slightly better) Associated Symptoms: denies symptoms Allergies and Home Medications Allergies Coded Allergies: Penicillins (Verified Allergy, Unknown, RASH, 02/14/17) oxycodone (Verified Allergy, Unknown, NAUSEA, 02/14/17) Home Medications Alprazolam 1 Mg Tablet, 1 MG PO BID PRN for ANXIETY Prescribed by: NEREIDA ALCANTARA on 02/18/17 1000 Aspirin 81 Mg Tablet.dr, 81 MG PO DAILY, (Reported) Cyanocobalamin (Vitamin B-12) 1,000 Mcg/1 Ml Drops, 1,000 MCG PO DAILY, (Reported) Enoxaparin Sodium 40 Mg/0.4 Ml Syringe, 40 MG SC Q24H Prescribed by: NEREIDA ALCANTARA on 02/18/17 1000 Gabapentin 100 Mg Capsule, 100 MG PO BID, (Reported) Hydrocodone Bit/Acetaminophen 1 Each Tablet, 1 TAB PO 0730,0800 PRN for PAIN- MODERATE TAKES 1 TABLET IN THE MORNING THEN TAKES A SECOND DOSE 30 MINUTES LATER Prescribed by: NEREIDA ALCANTARA on 02/18/17 1000 Lisinopril 10 Mg Tablet, 10 MG PO DAILY, (Reported) Mirabegron 50 Mg Tab.er.24h, 50 MG PO HS, (Reported) Pantoprazole Sodium 40 Mg Tablet.dr, 40 MG PO DAILY, (Reported) Sennosides/Docusate Sodium 1 Each Tablet, 2 TAB PO DAILY PRN for CONSTIPATION- 6TH LINE, (Reported) Patient Home Medication List Home Medication List Reviewed: Yes Review of Systems Constitutional: no symptoms reported EENTM: no symptoms reported Respiratory: no symptoms reported Cardiovascular: no symptoms reported Gastrointestinal: no symptoms reported Genitourinary: no symptoms reported : No Musculoskeletal: other (right hip.) Skin: no symptoms reported Psychiatric/Neurological: No Symptoms Reported All Other Systems Reviewed Negative Unless Noted: Yes Past Tcgtxgl-Frinus-Kxkces Hx Past Med/Social Hx: Reviewed Nursing Past Med/Soc Hx Patient Social History Type Used: Cigarettes Former Smoker, Quit: Jul 15, 1999 2nd Hand Smoke Exposure: No Recent Foreign Travel: No Contact w/Someone Who Travel: No Recent Hopitalizations: No Immunizations Up To Date Tetanus Booster (TDap): Unknown Seasonal Allergies Seasonal Allergies: No Past Medical History Surgeries: Yes (BLADDER TIE UP) Orthopedic Respiratory: No Cardiac: Yes Cardiomyopathy, Coronary Artery Disease, Heart Attack, High Cholesterol, Hypertension Neurological: Yes Dementia Genitourinary: Yes Bladder Infection, UTI-Chronic Gastrointestinal: Yes Chronic Constipation, Hiatal Hernia, Gall Bladder Disease Musculoskeletal: Yes Arthritis, Fractures Endocrine: No HEENT: Yes Hearing Impairment: Hard of Hearing Cancer: No Psychosocial: Yes Anxiety, Depression Integumentary: No Blood Disorders: No Family Medical History Diabetes mellitus G8 SISTER Kidney disease 19 FATHER Parkinson's disease 19 FATHER Physical Exam Vital Signs Vital Signs - First Documented 01/29/19 22:38 Temp 97.9 Pulse 76 B/P (MAP) 161/94 (116) Pulse Ox 96 O2 Delivery Room Air Capillary Refill : Height, Weight, BMI Height: 5'7.00" Weight: 130lbs. 8.0oz. 58.884216lt; 19.7 BMI Method:Stated General Appearance: No Apparent Distress, WD/WN HEENT: PERRL/EOMI, Normal ENT Inspection Neck: Full Range of Motion, Non Tender, Supple, Other (kyphosis is present) Cardiovascular: Regular Rate, Rhythm, No JVD, Other (2+ chronic pitting edema is present) Respiratory: Lungs Clear, Normal Breath Sounds, No Accessory Muscle Use, No Respiratory Distress Gastrointestinal: No Pulsatile Mass, Non Tender, Soft Back: Normal Inspection, No CVA Tenderness, No Vertebral Tenderness Extremity: Pedal Edema Neurologic/Psychiatric: Alert, No Motor/Sensory Deficits, Normal Mood/Affect, Other (. Unable to flex and extend and internally and externally rotate the right hip minimal discomfort, the joint feels in place in stable without deformity or dislocation, CMS intact distally or some soft tissue tenderness in the right lateral hip) Skin: Normal Color, Warm/Dry Lymphatic: No Adenopathy Progress/Results/Core Measures Results/Orders My Orders Orders - MARY HANEY DO Pelvis With Right Hip 2-3 View (01/29/19 22:36) Nothing By Mouth (01/30/19 Breakfast) Vital Signs/I&O 01/29/19 22:38 Temp 97.9 Pulse 76 B/P (MAP) 161/94 (116) Pulse Ox 96 O2 Delivery Room Air Progress Progress Note : Progress Note @8575 - X-ray shows what appears to be a chronic appearing fracture adjacent to the prosthesis in the right hip. This was compared to a CT of the pelvis pe rformed in October and appears unchanged. There is no evidence to suggest any acute traumatic pathology today. The patient's injury is likely a soft tissue contusion. She is able to tolerate full range of motion of the hip. Advised patient to follow up with her PCP in 2-3 days and return to ER for new or worsening symptoms. Patient did take Tylenol at the [facility] for pain relief as needed. Departure Impression Primary Impression: Contusion of hip Disposition: 01 HOME, SELF-CARE Condition: Stable Departure-Patient Inst. Decision time for Depature: 23:18 Referrals: SELF,MARY KENNEDY (PCP/Family) Primary Care Physician Patient Instructions: Contusion (DC) Add. Discharge Instructions: And follow up with your PCP in the next 2-3 days and to return to the emergency department for new or worsening symptoms. Take Tylenol at home for pain relief as needed. MARY HANEY DO Jan 29, 2019 22:44
--- NOTE | 2019-01-29 22:45 | NUR ---
PT. DOES HAVE SOME EDEMA AND SOME ROTATION OF THE RIGHT FOOT BUT THE JAIL REPORTS THIS IS NORMAL FOR THE PATIENT. THE JAIL HAD GIVEN PAIN MEDICATION PRIOR TO THE FALL.
[2019-01-29 23:33] VITALS: BP 161/94
--- NOTE | 2019-01-30 05:47 | Diagnostic Imaging Report ---
INDICATION: Fall. Right hip pain and discomfort. COMPARISON: None FINDINGS: Two dedicated radiographic views of the pelvis and 3 radiographic views of the right hip were obtained. Postsurgical changes of previous total right hip replacement are identified. Femoral and acetabular components appear well aligned in respect to one another. There is no evidence of periprosthetic fracture. Postsurgical changes of the proximal left femur also identified. Visualized portions of proximal femur intact. Left hip joint appears maintained as well. Evaluation of the remainder of the pelvis demonstrates no convincing additional acute abnormalities. There does appear to be diffuse diminished bone mineral density. Included small bowel loops are nondistended. IMPRESSION: 1. Postsurgical changes of previous total right hip replacement. No evidence of hardware fracture or dislocation. 2. No acute fracture of the pelvis. 3. Probable osteopenia/osteoporosis. Correlation with DEXA scan is recommended. Dictated by: Dictated on workstation # [id number]
--- OUTSIDE RECORDS SUMMARY | 2019-01-30 17:18 | XMS REPORT | Clinical Summary ---
Author Author [facility] Organization [facility] Address Unknown Phone Unavailable Care Team Providers Care Leguillon Debeader Name Role Phone Jack Hook MD PCP Unavailable Geovanny Waters MD Unavailable Source Comments Some departments are not documenting in the electronic medical record. If you d o not see the information that you expected, contact Release of Information in merged with [facility] Information Management department at [phone] for further assistan ce in locating additional records.[facility] Allergies Comments Active Allergy Reactions Severity Noted Date Penicillins RASH, ITCHING 01/23/2011 Medications End Date Status Medication Sig Dispensed Refills Start Date Active oxycodone SR (OXYCONTIN) Take 10 mg by 0 10 mg PO tablet mouth every 12 hours. Active atenolol (TENORMIN) 50 mg Take 50 mg by 0 PO tablet mouth daily. Active hydrocodone-acetaminophen Take 1-2 Tabs 0 (NORCO) 5-325 mg PO per by mouth tablet every 6 hours as needed. Active calcitonin salmon Insert 1 0 (FORTICAL) 200 [place] into unit/Actuation NA nasal nose as spray directed daily. 1 spray to 1 nostril. Alternate nostrils. Active cyclobenzaprine Take 10 mg by 0 (FLEXERIL) 10 mg PO mouth three tablet times daily as needed. Active Fesoterodine (TOVIAZ) 8 Take by 0 mg PO Tb24 mouth. Active cyanocobalamin (VITAMIN Inject 1,000 0 B-12, RUBRAMIN) 1,000 mcg to mcg/mL IJ injection area(s) as directed every 30 days. Active alprazolam (XANAX) 0.5 mg Take 0.5 mg 0 PO tablet by mouth three times daily as needed. Active aspirin EC 81 mg PO Take 81 mg by 0 tablet mouth daily. Active Guar Gum (BENEFIBER Take by 0 CLEAR) PO Pack mouth. Active senna/docusate Take 2 Tabs 0 (SENNALAX-S) 8.6/50 mg PO by mouth at tablet bedtime daily. Active polysaccharide iron Take 150 mg 0 complex (NIFEREX) 150 mg by mouth PO capsule twice daily. Active MULTI-VITAMIN PO Take by 0 mouth. Active hydrocodone/acetaminophen Take 1-2 Tabs 30 Tab 0 (VICODIN) 5/500 mg PO by mouth 1 tablet every 6 hours as needed for Pain. Active docusate (COLACE) 100 mg Take 1 Cap by 180 Cap 0 PO capsule mouth daily 1 as needed for Constipation. Active Problems Not on file Social History Date Tobacco Use Types Packs/Day Years Used Quit: 07/26/1998 Former Smoker Cigarettes 1 25 Smokeless Tobacco: Never Used Drinks/Week oz/Week Comments Alcohol Use No Sex Assigned at Date Recorded Not on file Industry Job Start Date Occupation Not on file Not on file Not on file Travel End Travel History Travel Start No recent travel history available. Last Filed Vital Signs Reading Time Taken Comments Vital Sign 159/85 01/30/2011 11:49 AM CDT Blood Pressure 72 01/30/2011 11:49 AM CDT Pulse 36.7 C (98 F) 01/30/2011 11:49 AM CDT Temperature - - Respiratory Rate 96% 01/30/2011 11:49 AM CDT Oxygen Saturation - - Inhaled Oxygen Concentration 59 kg (130 lb 1.6 oz) 01/23/2011 8:25 PM CDT Weight 170.2 cm (5' 7.01") 01/24/2011 1:00 PM CDT Height 20.37 01/23/2011 8:25 PM CDT Body Mass Index Plan of Treatment Health Maintenance Due Date Last Done Comments PHYSICAL (COMPREHENSIVE) 1941 EXAM DTAP/TDAP VACCINES (1 - 1952 Tdap) SHINGLES RECOMBINANT 1984 VACCINE (1 of 2) OSTEOPOROSIS 10/30/1999 SCREENING/MONITORING PNEUMONIA (PCV13/PPSV23) 10/30/1999 VACCINES (1 of 2 - PCV13) INFLUENZA VACCINE 04/14/2019 Results Not on filefrom Last 3 Months Advance Directives Date Inactivated Comments Code Status Date Activated 01/30/2011 2:45 PM Full Code 01/23/2011 9:51 PM Provider has discussed Code Status Yes w/Patient or Family?
--- OUTSIDE RECORDS SUMMARY | 2019-01-30 17:18 | XMS REPORT | Continuity of Care Document ---
Author Organization Unknown Address Unknown Allergies There is no data. Medications There is no data. Problems There is no data. Procedures There is no data. Results Test Result Range CULTURE, URINE - 10/24/18 15:01 CULTURE, URINE, ROUTINE SEE NOTE NRG CBC - 01/01/19 11:54 WHITE BLOOD CELL COUNT 3.4 Thousand/uL 3.8-10.8 RED BLOOD CELL COUNT 5.39 Million/uL 3.80-5.10 HEMOGLOBIN 15.3 g/dL 11.7-15.5 HEMATOCRIT 47.3 % 35.0-45.0 MCV 87.8 fL 80.0-100.0 MCH 28.4 pg 27.0-33.0 MCHC 32.3 g/dL 32.0-36.0 RDW 12.9 % 11.0-15.0 PLATELET COUNT 201 Thousand/uL 140-400 MPV 9.7 fL 7.5-12.5 ABSOLUTE NEUTROPHILS 2064 cells/uL 5891-8156 ABSOLUTE LYMPHOCYTES 694 cells/uL 850-3900 ABSOLUTE MONOCYTES 544 cells/uL 200-950 ABSOLUTE EOSINOPHILS 68 cells/uL 15-500 ABSOLUTE BASOPHILS 31 cells/uL 0-200 NEUTROPHILS 60.7 % NRG LYMPHOCYTES 20.4 % NRG MONOCYTES 16.0 % NRG EOSINOPHILS 2.0 % NRG BASOPHILS 0.9 % NRG PT/INR - 01/06/19 09:51 INR 1.0 NRG PT 10.4 sec 9.0-11.5 CMP - 01/20/19 09:31 GLUCOSE 104 mg/dL 65-99 UREA NITROGEN (BUN) 16 mg/dL 7-25 CREATININE 0.77 mg/dL 0.60-0.88 eGFR NON-AFR. [place] 71 mL/min/1.73m2 > OR=60 eGFR 82 mL/min/1.73m2 > OR=60 BUN/CREATININE RATIO NOT APPLICABLE (calc) 6-22 SODIUM 142 mmol/L 135-146 POTASSIUM 4.1 mmol/L 3.5-5.3 CHLORIDE 111 mmol/L 98-110 CARBON DIOXIDE 22 mmol/L 20-32 CALCIUM 9.5 mg/dL 8.6-10.4 PROTEIN, TOTAL 6.2 g/dL 6.1-8.1 ALBUMIN 4.0 g/dL 3.6-5.1 GLOBULIN 2.2 g/dL (calc) 1.9-3.7 ALBUMIN/GLOBULIN RATIO 1.8 (calc) 1.0-2.5 BILIRUBIN, TOTAL 0.5 mg/dL 0.2-1.2 ALKALINE PHOSPHATASE 61 U/L 33-130 AST 14 U/L 10-35 ALT 4 U/L 6-29 CBC - 01/20/19 09:31 WHITE BLOOD CELL COUNT 4.4 Thousand/uL 3.8-10.8 RED BLOOD CELL COUNT 5.02 Million/uL 3.80-5.10 HEMOGLOBIN 14.3 g/dL 11.7-15.5 HEMATOCRIT 45.3 % 35.0-45.0 MCV 90.2 fL 80.0-100.0 MCH 28.5 pg 27.0-33.0 MCHC 31.6 g/dL 32.0-36.0 RDW 12.7 % 11.0-15.0 PLATELET COUNT 214 Thousand/uL 140-400 MPV 9.4 fL 7.5-12.5 ABSOLUTE NEUTROPHILS 2693 cells/uL 5695-1559 ABSOLUTE LYMPHOCYTES 1091 cells/uL 850-3900 ABSOLUTE MONOCYTES 515 cells/uL 200-950 ABSOLUTE EOSINOPHILS 70 cells/uL 15-500 ABSOLUTE BASOPHILS 31 cells/uL 0-200 NEUTROPHILS 61.2 % NRG LYMPHOCYTES 24.8 % NRG MONOCYTES 11.7 % NRG EOSINOPHILS 1.6 % NRG BASOPHILS 0.7 % NRG Encounters ACCT No. Visit Date/Time Discharge Status Pt. Type Provider Facility Loc./Unit Complaint [id number] 01/20/2019 09:15:00 01/20/2019 23:59:59 [facility] [id number] 01/20/2019 09:15:00 Document Registration [id number] 01/06/2019 17:45:00 Document Registration [id number] 01/01/2019 11:30:00 Document Registration [id number] 10/24/2018 15:00:00 Document Registration
== END 2019-01-29 23:40 | disposition home or self-care (01) ==
LOC: EDUNIT# 22:32 → ER FS 22:34
DX: S70.01XA Contusion of right hip, initial encounter (principal); I10 Essential (primary) hypertension; E78.00 Pure hypercholesterolemia, unspecified; I25.2 Old myocardial infarction; I25.10 Atherosclerotic heart disease of native coronary artery without angina pectoris; I42.9 Cardiomyopathy, unspecified; F03.90 Unspecified dementia, unspecified severity, without behavioral disturbance, psychotic disturbance, mood disturbance, and anxiety; F41.9 Anxiety disorder, unspecified; F32.9 Major depressive disorder, single episode, unspecified; Z87.19 Personal history of other diseases of the digestive system; Z88.0 Allergy status to penicillin; Z88.5 Allergy status to narcotic agent; Z79.82 Long term (current) use of aspirin; Z87.891 Personal history of nicotine dependence; W19.XXXA Unspecified fall, initial encounter
CPT/HCPCS: 73502

== ENCOUNTER 2019-04-09 00:29 | Inpatient (IN) | payer MEDICARE, BC ==
[~2019-04-09] VITALS: Ht 157.4 cm; Wt 60.8 kg
[2019-04-09] MEDS ORDERED: NS IV 1000 ML 1,000 ML IV SCH ×3 (00:33→02:45)
--- NOTE | 2019-04-09 00:41 | ED Abdominal Pain ---
General Stated Complaint: VOMITTING, LETHARGIC Source of Information: Patient, EMS, Long-Term Records Exam Limitations: No Limitations, Other (unable to give meaningful review of systems or history) History of Present Illness Date Seen by Provider: Apr 09, 2019 Time Seen by Provider: 00:25 Initial Comments Patient presents to ER from the longterm with chief complaint that this evening she was being lethargic, low blood pressure around 100 systolic and vomiting 1. EMS noted the negative her oxygen sats were 85%. Her oxygen sats recovered to the mid 90s with 6 L by nasal cannula. She does not use oxygen at baseline or have a history of lung disease. She's had no cough fevers or chills. She is demented and does not give much history other than her name and that her belly hurts pointing to her epigastric region. She has a history of coronary disease. EMS was not able to get a clear EKG on route. She is not on blood thinners. No history of diarrhea or dysuria. Allergies and Home Medications Allergies Coded Allergies: Penicillins (Verified Allergy, Unknown, RASH, 02/14/17) oxycodone (Verified Allergy, Unknown, NAUSEA, 02/14/17) Home Medications Alprazolam 1 Mg Tablet, 1 MG PO BID PRN for ANXIETY Prescribed by: NEREIDA ALCANTARA on 02/18/17 1000 Aspirin 81 Mg Tablet.dr, 81 MG PO DAILY, (Reported) Cyanocobalamin (Vitamin B-12) 1,000 Mcg/1 Ml Drops, 1,000 MCG PO DAILY, (Reported) Enoxaparin Sodium 40 Mg/0.4 Ml Syringe, 40 MG SC Q24H Prescribed by: NEREIDA ALCANTARA on 02/18/17 1000 Gabapentin 100 Mg Capsule, 100 MG PO BID, (Reported) Hydrocodone Bit/Acetaminophen 1 Each Tablet, 1 TAB PO 0730,0800 PRN for PAIN- MODERATE TAKES 1 TABLET IN THE MORNING THEN TAKES A SECOND DOSE 30 MINUTES LATER Prescribed by: NEREIDA ALCANTARA on 02/18/17 1000 Lisinopril 10 Mg Tablet, 10 MG PO DAILY, (Reported) Mirabegron 50 Mg Tab.er.24h, 50 MG PO HS, (Reported) Pantoprazole Sodium 40 Mg Tablet.dr, 40 MG PO DAILY, (Reported) Sennosides/Docusate Sodium 1 Each Tablet, 2 TAB PO DAILY PRN for CONSTIPATION- 6TH LINE, (Reported) Patient Home Medication List Home Medication List Reviewed: Yes Review of Systems Review of Systems Constitutional: No chills, No fever, No malaise; weakness Respiratory: Denies Cough, Denies Shortness of Air Cardiovascular: See HPI; Denies Chest Pain; Edema Gastrointestinal: See HPI, Abdominal Pain; Denies Constipated, Denies Diarrhea; Nausea; Denies Poor Fluid Intake, Denies Rectal Bleeding; Vomiting Genitourinary: Denies Burning, Denies Discharge Musculoskeletal: No back pain, No joint pain Past Vgihxfj-Lhqqcd-Gzizcd Hx Patient Social History Alcohol Use: Denies Use Recreational Drug Use: No Smoking Status: Former Smoker Type Used: Cigarettes Former Smoker, Quit: Jul 15, 1999 2nd Hand Smoke Exposure: No Recent Hopitalizations: No Immunizations Up To Date Tetanus Booster (TDap): Unknown Seasonal Allergies Seasonal Allergies: No Past Medical History Surgeries: Yes (BLADDER TIE UP) Orthopedic Respiratory: No Cardiac: Yes Cardiomyopathy, Coronary Artery Disease, Heart Attack, High Cholesterol, H ypertension Neurological: Yes Dementia Genitourinary: Yes Bladder Infection, UTI-Chronic Gastrointestinal: Yes Chronic Constipation, Hiatal Hernia, Gall Bladder Disease Musculoskeletal: Yes Arthritis, Fractures Endocrine: No HEENT: Yes Hearing Impairment: Hard of Hearing Cancer: No Psychosocial: Yes Anxiety, Depression Integumentary: No Blood Disorders: No Family Medical History Diabetes mellitus G8 SISTER Kidney disease 19 FATHER Parkinson's disease 19 FATHER Physical Exam Vital Signs Vital Signs - First Documented 04/09/19 04/09/19 00:29 01:37 Temp 36.8 Pulse 100 Resp 20 B/P (MAP) 109/51 (70) Pulse Ox 95 O2 Delivery Nasal Cannula O2 Flow Rate 4.00 Capillary Refill : Height/Weight/BMI Height: 5'7.00" Weight: 135lbs. 8.0oz. 61.286345qu; 19.7 BMI Method:Stated General Appearance: mild distress, thin HEENT: PERRL/EOMI, pharynx normal Neck: full range of motion, normal inspection Respiratory: lungs clear, normal breath sounds, no respiratory distress, no accessory muscle use Cardiovascular: normal peripheral pulses, regular rate, rhythm Peripheral Pulses: 2+ Radial Pulses (R), 2+ Radial Pulses (L) Gastrointestinal: normal bowel sounds, guarding (of epigastric), tenderness (epigastric tenderness tenderness to percussion. Negative for Chapa sign, McBurney's point tenderness, mesenteric signs, Rovsing's or psoas signs.) Extremities: normal capillary refill, pedal edema (chronic) Neurologic/Psychiatric: alert, normal mood/affect, other (oriented times person and place but not time or situation.) Skin: normal color, warm/dry Focused Exam Lactate Level 04/09/19 00:35: Lactic Acid Level 1.98 Lactic Acid Level Laboratory Tests Test 04/09/19 00:35 Lactic Acid Level 1.98 MMOL/L (0.50-2.00) Progress/Results/Core Measures Results/Orders Lab Results Laboratory Tests Test 04/09/19 00:35 04/09/19 01:00 04/09/19 01:26 Range/Units White Blood Count 5.6 4.3-11.0 10^3/uL Red Blood Count 5.81 4.35-5.85 10^6/uL Hemoglobin 16.6 H 11.5-16.0 G/DL Hematocrit 52 35-52 % Mean Corpuscular Volume 89 80-99 FL Mean Corpuscular Hemoglobin 29 25-34 PG Mean Corpuscular Hemoglobin Concent 32 32-36 G/DL Red Cell Distribution Width 12.3 10.0-14.5 % Platelet Count 238 130-400 10^3/uL Mean Platelet Volume 9.7 7.4-10.4 FL Neutrophils (%) (Auto) 85 H 42-75 % Lymphocytes (%) (Auto) 5 L 12-44 % Monocytes (%) (Auto) 8 0-12 % Eosinophils (%) (Auto) 0 0-10 % Basophils (%) (Auto) 1 0-10 % Neutrophils # (Auto) 4.8 1.8-7.8 X 10^3 Lymphocytes # (Auto) 0.3 L 1.0-4.0 X 10^3 Monocytes # (Auto) 0.4 0.0-1.0 X 10^3 Eosinophils # (Auto) 0.0 0.0-0.3 10^3/uL Basophils # (Auto) 0.1 0.0-0.1 10^3/uL Neutrophils % (Manual) 48 % Lymphocytes % (Manual) 7 % Monocytes % (Manual) 4 % Eosinophils % (Manual) 0 % Basophils % (Manual) 0 % Metamyelocytes % 1 % Band Neutrophils 40 % Blood Morphology Comment NORMAL Prothrombin Time 13.1 12.2-14.7 SEC INR Comment 1.0 0.8-1.4 Activated Partial Thromboplast Time < 20 L 24-35 SEC Sodium Level 142 135-145 MMOL/L Potassium Level 4.4 3.6-5.0 MMOL/L Chloride Level 105 98-107 MMOL/L Carbon Dioxide Level 24 21-32 MMOL/L Anion Gap 13 5-14 MMOL/L Blood Urea Nitrogen 30 H 7-18 MG/DL Creatinine 1.22 0.60-1.30 MG/DL Estimat Glomerular Filtration Rate 42 BUN/Creatinine Ratio 25 Glucose Level 135 H 70-105 MG/DL Lactic Acid Level 1.98 0.50-2.00 MMOL/L Calcium Level 9.6 8.5-10.1 MG/DL Corrected Calcium 10.1 8.5-10.1 MG/DL Total Bilirubin 0.9 0.1-1.0 MG/DL Aspartate Amino Transf (AST/SGOT) 18 5-34 U/L Alanine Aminotransferase (ALT/SGPT) 5 0-55 U/L Alkaline Phosphatase 139 H 40-136 U/L Troponin I < 0.30 <0.30 NG/ML Total Protein 6.4 6.4-8.2 GM/DL Albumin 3.4 3.2-4.5 GM/DL Lipase 29 8-78 U/L Urine Color YELLOW Urine Clarity CLEAR Urine pH 5.5 5-9 Urine Specific Burkett 1.015 L 1.016-1.022 Urine Protein NEGATIVE NEGATIVE Urine Glucose (UA) NEGATIVE NEGATIVE Urine Ketones NEGATIVE NEGATIVE Urine Nitrite NEGATIVE NEGATIVE Urine Bilirubin NEGATIVE NEGATIVE Urine Urobilinogen 0.2 NORMAL MG/DL Urine Leukocyte Esterase NEGATIVE NEGATIVE Urine RBC (Auto) NEGATIVE NEGATIVE Urine RBC NONE /HPF Urine WBC 2-5 /HPF Urine Squamous Epithelial Cells 2-5 /HPF Urine Crystals NONE /LPF Urine Bacteria MODERATE H /HPF Urine Casts PRESENT /LPF Urine Hyaline Casts 2-5 H /LPF Urine Mucus NEGATIVE /LPF Urine Culture Indicated CULTURE PENDING Blood Gas Puncture Site LT AC Blood Gas Patient Temperature 36.8 Arterial Blood pH 7.42 7.37-7.43 Arterial Blood Partial Pressure CO2 40 35-45 MMHG Arterial Blood Partial Pressure O2 91 79-93 MMHG Arterial Blood HCO3 26 23-27 MMOL/L Arterial Blood Total CO2 27.1 21.0-31.0 MMOL/L Arterial Blood Oxygen Saturation 97 94-100 % Arterial Blood Base Excess 1.3 -2.5-2.5 MMOL/L Cody Test YES-POS Blood Gas Ventilator Setting NO Blood Gas Inspired Oxygen 6L Micro Results Microbiology 04/09/19 Influenza Types A,B Antigen (DIMPLE) - Final, Complete My Orders Orders - RONALDO ORTIZ Cbc With Automated Diff (04/09/19:33) Comprehensive Metabolic Panel (04/09/19:33) Blood Culture (04/09/19:33) Sputum Culture (04/09/19:) Urinalysis (04/09/19) Urine Culture (04/09/19) Protime With Inr (04/09/19) Partial Thromboplastin Time (04/09/19:) Chest 1 View Ap/Pa Only (04/09/19:) Ed Iv/Invasive Line Start (04/09/19:33) Ed Iv/Invasive Line Start (04/09/19:33) Ekg Tracing (04/09/19:) Vital Signs Adult Sepsis Patie Q15M (04/09/19:33) Ondansetron Injection (Zofran Injectio (04/09/19 00:45) O2 (04/09/19:33) Remove Rings In Anticipation O (04/09/19:33) Lactic Acid Analyzer (04/09/19:33) Influenza A And B Antigens (04/09/19:33) Ns Iv 1000 Ml (Sodium Chloride 0.9%) (04/09/19 00:33) Cefepime Injection (Maxipime Injection) (04/09/19 00:45) Ed Iv/Invasive Line Start (04/09/19:33) Ns Iv 1000 Ml (Sodium Chloride 0.9%) (04/09/19:33) Ct Abdomen/Pelvis W (04/09/19 00:33) Troponin I Fs (04/09/19 00:33) Lipase (04/09/19:33) Manual Differential (04/09/19 00:35) Pantoprazole Injection (Protonix Injecti (04/09/19 01:00) Arterial Blood Gas (04/09/19 01:01) Iohexol Injection (Omnipaque 350 Mg/Ml 1 (04/09/19 01:30) Received Contrast (Hold Metformin- Contr (04/09/19 01:30) Sodium Chloride Flush (Catheter Flush Sy (04/09/19 01:30) Ns (Ivpb) (Sodium Chloride 0.9% Ivpb Bag (04/09/19 01:30) Norepinephrine (Levophed) (04/09/19 02:45) Vancomycin Injection (Vancomycin Injecti (04/09/19 02:45) Ns Iv 1000 Ml (Sodium Chloride 0.9%) (04/09/19 02:45) Ns (Ivpb) (Sodium Chloride 0.9%) (04/09/19 02:37) Medications Given in ED Current Medications Medications Dose Ordered Sig/Taylor Route Start Time Stop Time Status Last Admin Dose Admin Cefepime HCl 1000 mg/Sterile Water 10 ml @ 200 mls/hr ONCE ONCE IV 04/09/19 00:45 04/09/19 00:47 DC 04/09/19 02:04 200 MLS/HR Iohexol 100 ml ONCE ONCE IV 04/09/19 01:30 04/09/19 01:31 DC 04/09/19 01:43 50 ML Pantoprazole 40 mg ONCE ONCE IV 04/09/19 01:00 04/09/19 01:01 DC 04/09/19 01:58 40 MG Sodium Chloride 100 ml ONCE ONCE IV 04/09/19 01:30 04/09/19 01:31 DC 04/09/19 01:43 80 ML Vital Signs/I&O 04/09/19 04/09/19 00:29 01:37 Temp 36.8 Pulse 100 Resp 20 B/P (MAP) 109/51 (70) Pulse Ox 95 95 O2 Delivery Nasal Cannula Nasal Cannula O2 Flow Rate 4.00 4.00 Progress Progress Note #1: Time: 00:40 Progress Note Septic workup including a troponin, lipase and EKG. She's had emesis 1 so we'll give her 8 mg Zofran. We'll give her 2 L which would be 30 mg/kg of IV fluids. Cefepime for general coverage. ABG for her hypoxia. Pantoprazole for her ep igastric pain. Echocardiogram [address] Page: Cavity size normal. Wall thickness mildly increased with concentric hypertrophy. Ejection fraction 50-55%. Grade 1 diastolic dysfunction. Mild mitral regurgitation. History of cardiomyopathy and CHF. Cardiac catheterization at [facility], did not show any significant heart artery blockage per family report. Progress Note #2: Time: 02:30 Progress Note Patient is received 30 mils per kilogram in her map continues to drop below 65. We will start Levophed peripherally. We are holding off doing a central line while her trying to get a hold of the power of deputy attorney general. We have cold but there is no voicemail set up to leave messages. We will continue to try and for unsuccessful we'll proceed with central line and hospital placement. IV fluids 250 an hour, Levophed 0.2 mics per kilogram initially, vancomycin. We explained the situation to the patient with nursing staff present and she said while she did not understand diagnosis 1 explained that the only way to fix it would be a large surgery that she would have a very poor chance of surviving she said that and she does not want. We asked if she wants us to just do things to make her comfortable and she said yes to that. Called the daughter a few more times without success. 0243: Called Eduard Neville, her son and spoke to him and he said that she is able to make her wishes known and if she said she doesn't want the surgery he would agree that he would only want her to be comfort care at this time. We have held off on the Levophed put her in Trendelenburg and that improved her blood pr essure and keeping around 65 map. Plan is to admit her to [facility] for comfort cares only. Patient is DO NOT RESUSCITATE at this time. Initial ECG Impression Date: Apr 09, 2019 Initial ECG Impression Time: 00:43 Initial ECG Rate: 92 Initial ECG Rhythm: Normal Sinus Initial ECG Intervals: Normal Initial ECG Impression: Normal, Nonspecific Changes Comment Mild respiratory artifact. No clinically evident ST elevation or depression. Diagnostic Imaging Diagonstic Imaging: Xray Plain Films/CT/US/NM/MRI: chest (one view) Comments Review free air under the diaphragm with artifact from the sequence on her shirt noted. Extensive hiatal hernia. Progressive from previous x-ray. Reviewed: Reviewed by Me Diagonstic Imaging: CT (with IV contrast) Plain Films/CT/US/NM/MRI: abdomen, pelvis Comments Free air in the abdomen around the liver with phlegmon seen left descending bowel as well as enlarged gall bladder surrounded by some free fluid and distended common bile duct approximately 10 mm. Perforation from uncertain area. Possible perforated ulcer versus large intestine, favor large intestine. Left colonic diverticula. Reviewed: Reviewed [place] Study, Reviewed by Me, Discussed w/Radiologist (Dr Rice) Consults : Consulting Physician: HIEN JOHNSON MD Consults Notes Discussed case lab imaging findings with Dr. Johnson and he agrees that this seems like a perforated bowel based on the story and would require a large laparotomy colostomy and has his doubts about the patient's ability to cope with that. We are going to take this information and discuss with the family member. Departure Communication (Admissions) Time/Spoke to Admitting Phy: 02:50 Discussed case lab imaging findings with Dr. Acosta and she agrees with admission for comfort cares only. Impression Primary Impression: Large bowel perforation Additional Impressions: Shock Need for comfort care Disposition: ADMITTED INPATIENT Condition: Critical Admissions Decision to Admit Reason: Admit from ER (General) Decision to Admit/Date: Apr 09, 2019 Time/Decision to Admit Time: 02:45 Departure-Patient Inst. Referrals: MARY POSADA MD (PCP/Family) Primary Care Physician RONALDO ORTIZ Apr 09, 2019 00:41
[2019-04-09] MEDS ORDERED: CEFEPIME INJECTION 1,000 MG in WATER (STERILE) FOR INJECTION 10 ML IV ONE (00:45)
[2019-04-09] MEDS ORDERED: ONDANSETRON 4 MG/2 ML (SDV) Z0FRAN IV PRN ×3 (00:45→05:30)
[2019-04-09 00:58] LABS: HEMATOCRIT 52 % (35-52); HEMOGLOBIN 16.6 G/DL (11.5-16.0); MEAN CORPUSCULAR HEMOGLOBIN 29 PG (25-34); MEAN CORPUSCULAR HGB CONC 32 G/DL (32-36); MEAN CORPUSCULAR VOLUME 89 FL (80-99); RED CELL DISTRIBUTION WIDTH 12.3 % (10.0-14.5); WHITE BLOOD COUNT 5.6 10^3/uL (4.3-11.0)
[2019-04-09 00:59] LABS: BASOPHILS # (AUTO) 0.1 10^3/uL (0.0-0.1); BASOPHILS % (AUTO) 1 % (0-10); EOSINOPHILS % (AUTO) 0 % (0-10); LYMPHOCYTES # (AUTO) 0.3 X 10^3 (1.0-4.0); LYMPHOCYTES % (AUTO) 5 % (12-44); MEAN PLATELET VOLUME 9.7 FL (7.4-10.4); MONOCYTES # (AUTO) 0.4 X 10^3 (0.0-1.0); MONOCYTES % (AUTO) 8 % (0-12); NEUTROPHILS # (AUTO) 4.8 X 10^3 (1.8-7.8); NEUTROPHILS % (AUTO) 85 % (42-75); PLATELET COUNT 238 10^3/uL (130-400)
[2019-04-09] MEDS ORDERED: PANTOPRAZOLE 40 MG (PROTONIX) VIAL IV ONE (01:00)
[2019-04-09 01:07] LABS: BACTERIA,URINE MODERATE /HPF; BILIRUBIN,URINE NEGATIVE (NEGATIVE); CLARITY,URINE CLEAR; COLOR,URINE YELLOW; GLUCOSE, URINE (UA) NEGATIVE (NEGATIVE); KETONES,URINE NEGATIVE (NEGATIVE); LEUKOCYTE ESTERASE ,URINE NEGATIVE (NEGATIVE); NITRITE,URINE NEGATIVE (NEGATIVE); PH,URINE 5.5 (5-9); PROTEIN,URINE NEGATIVE (NEGATIVE); UROBILINOGEN,URINE 0.2 MG/DL (NORMAL)
[2019-04-09 01:17] LABS: PARTIAL THROMBOPLASTIN TIME < 20 SEC (24-35); PROTHROMBIN TIME PATIENT 13.1 SEC (12.2-14.7)
[2019-04-09 01:19] LABS: CARBON DIOXIDE 24 MMOL/L (21-32); CHLORIDE 105 MMOL/L (98-107); GFR ESTIMATED 42; POTASSIUM 4.4 MMOL/L (3.6-5.0); SODIUM 142 MMOL/L (135-145)
[2019-04-09 01:20] LABS: ALANINE AMINOTRANSFERASE 5 U/L (0-55); ALBUMIN 3.4 GM/DL (3.2-4.5); ALKALINE PHOSPHATASE 139 U/L (40-136); BILIRUBIN,TOTAL 0.9 MG/DL (0.1-1.0); BUN/CREATININE RATIO 25; CALCIUM 9.6 MG/DL (8.5-10.1); CREATININE SERUM 1.22 MG/DL (0.60-1.30); GLUCOSE 135 MG/DL (70-105); LIPASE 29 U/L (8-78); TOTAL PROTEIN 6.4 GM/DL (6.4-8.2)
[2019-04-09 01:25] LABS: BAND NEUTROPHILS 40 %; BASOPHILS % (MANUAL) 0 %; EOSINOPHILS % (MANUAL) 0 %; LYMPHOCYTES % (MANUAL) 7 %; METAMYELOCYTES % 1 %; MONOCYTES % (MANUAL) 4 %; NEUTROPHILS % (MANUAL) 48 %; RBC MORPH NORMAL
[2019-04-09] MEDS ORDERED: IOHEXOL 350 MG/ML 100 ML (OMNIPAQUE 350) VIAL IV ONE (01:30)
[2019-04-09] MEDS ORDERED: NS 100 ML (IVPB) BAG IV ONE (01:30)
[2019-04-09] MEDS ORDERED: HOLD METFORMIN - RECEIVED CONTRAST 20 ML VIAL IV SCH (01:30)
[2019-04-09] MEDS ORDERED: CATHETER FLUSH 10 ML SYR IV PRN (01:30)
[2019-04-09 01:33] LABS: ABG BASE EXCESS 1.3 MMOL/L (-2.5-2.5); ABG OXYGEN SATURATION 97 % (94-100); ABG PCO2 40 MMHG (35-45); ABG PH 7.42 (7.37-7.43); ABG PO2 91 MMHG (79-93); ABG TCO2 27.1 MMOL/L (21.0-31.0); ALLENS TEST YES-POS; INSPIRED O2 6L; PATIENT TEMP 36.8; VENTILATOR NO
--- NOTE | 2019-04-09 02:30 | NUR ---
BP 83/34, HR 78
[2019-04-09] MEDS ORDERED: NS (IVPB) 0 ML ONE (02:37)
[2019-04-09] MEDS ORDERED: VANCOMYCIN INJECTION 1,000 MG in NS (IVPB) 250 ML IV ONE (02:45)
[2019-04-09] MEDS ORDERED: NOREPINEPHRINE 4 MG in NS (IVPB) 250 ML IV SCH (02:45)
--- NOTE | 2019-04-09 04:32 | NUR ---
GALO LONG admitted to room 407-1, with an admitting diagnosis of BOWEL PERFORATION,COMFORT CARE, on 04/09/19 from [facility] via EMS, accompanied by EMS.GALO LONG introduced to surroundings, call light, bed controls, phone, TV, temperature control, lights, meal times, smoking policy, visitor policy, side rail policy, bathrooms and showers. Patient Rights given to patient in the handbook. GALO LONG verbalizes understanding that [facility] is not responsible for the loss or damage to any personal effects or valuables that are kept in the patients posession during their hospitalization.
[2019-04-09 05:00] VITALS: BP 122/87
[2019-04-09] MEDS ORDERED: morphine (ROXINOL) 10 MG/0.5 ML oral conc 0.5 ML PO PRN (05:30)
[2019-04-09] MEDS ORDERED: ATROPINE 1% OPHTHALMIC SOLN 2 ML SL PRN (05:30)
[2019-04-09] MEDS ORDERED: morphine IMMEDIATE RELEASE 15 MG TABLET PO PRN (05:30)
[2019-04-09] MEDS ORDERED: RT-ALBUTEROL/IPRATROPIUM 3 ML (DUONEB) VIAL INH PRN (05:30)
[2019-04-09] MEDS ORDERED: LORazepam INJ 2 MG/ML (ATIVAN) VIAL IV PRN (05:30)
[2019-04-09] MEDS ORDERED: ARTIFICAL TEARS 0.4 ML UNIT DOSE (REFRESH PLUS) OU PRN (05:30)
[2019-04-09] MEDS ORDERED: SALIVA STIMULANT MOUTH SPRAY (BIOTENE) 1.5 OZ MM PRN (05:30)
[2019-04-09] MEDS ORDERED: BISACODYL 10 MG SUPP (DULCOLAX) PR PRN (05:30)
[2019-04-09] MEDS ORDERED: ACETAMINOPHEN 650 MG SUPP (TYLENOL) PR PRN (05:30)
[2019-04-09] MEDS ORDERED: GLYCOPYRROLATE 0.2 MG/ML (ROBINUL) 2 ML VIAL IV PRN (05:30)
[2019-04-09] MEDS ORDERED: PROMETHAZINE INJ 25 MG/ML (PHENERGAN) AMP IV PRN (05:30)
--- NOTE | 2019-04-09 06:57 | Diagnostic Imaging Report ---
PROCEDURE: CT abdomen and pelvis with contrast. TECHNIQUE: Multiple contiguous axial images were obtained through the abdomen and pelvis after administration of intravenous contrast. Auto Exposure Controls were utilized during the CT exam to meet ALARA standards for radiation dose reduction. INDICATION: Abdominal pain There is large hiatal hernia. There is atelectasis at both lung bases. There is large pneumoperitoneum. Liver is unremarkable. Gallbladder is distended. The intra- and extrahepatic bile ducts are dilated. There are no pancreatic masses seen. There are some calcified granulomas in the spleen. The spleen is not enlarged. Kidneys and adrenals appear normal. There is calcific atherosclerosis of aorta but no aneurysm. There is a large amount of stool in the colon. There is diverticulosis. There is a segment of apparent wall thickening of the descending colon Small bowel is not dilated. There are compression fractures of T12-L4. IMPRESSION: Large pneumoperitoneum of uncertain origin. There is a hiatal hernia. There is distended gallbladder with common duct dilatation. There is large amount of fecal stasis. Patient has had bilateral hip arthroplasties. There is diverticulosis of colon and there is a segment of wall thickening of the ascending colon. Critical finding Dictated by: Dictated on workstation # [id number]
--- NOTE | 2019-04-09 07:04 | Diagnostic Imaging Report ---
Indication: Shortness of breath. Portable chest 1:32 AM Heart size is normal. Vascularity is normal. There is some atelectasis at the left lung base. There is pneumoperitoneum. There is a left diaphragmatic and/or hiatal hernia. Impression: Pneumoperitoneum. Bibasilar atelectasis. Critical finding Dictated by: Dictated on workstation # [id number]
[2019-04-09 08:00] VITALS: BP 88/52
[2019-04-09] MEDS: morphine INJ 4 MG/ML 1 ML (VIAL/SYRINGE) IV PRN ×3 (08:29→13:15)
[2019-04-09] MEDS ORDERED: SCOPOLAMINE 1.5 MG (TRANSDERM-SCOP) PATCH TOP SCH (09:00)
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
--- NOTE | 2019-04-09 10:18 | History & Physical-Hospitalist ---
History of Present Illness HPI/Chief Complaint Chief complaint: Intestinal perforation- admitted for end of life care. HPI: This is an 83yoWF admitted to [facility] from [facility] for end of life care and palliative care. Apparently she began to have severe abdominal pain, was assessed to have a severe intestinal perforation and Pt had shock and multi-system organ failure and chose to be kept comfortable, admitted for comfort care protocol and family at the bedside agreeable with the plan. Her umeqxqiw-hd-izb is a nurse at [facility]. I introduced Chris Anderson, palliative care nurse to the family and we will work n getting Pt more comfortable, and add Scopolamine patch. Source: family, RN/MD Exam Limitations: no limitations Date Seen 04/09/19 Time Seen by a Provider: 09:30 Attending Physician Lachelle Alcantara DO PCP Juliano,Juan KENNEDY Referring Physician HIEN CURRY MD Date of Admission Apr 09, 2019 at 03:00 Home Medications & Allergies Home Medications Reviewed patient Home Medication Reconciliation performed by pharmacy medication reconciliations network technician and/or nursing. Patients Allergies have been reviewed. Allergies Allergies Coded Allergies Penicillins (Verified Allergy, Unknown, RASH, 02/14/17) oxycodone (Verified Allergy, Unknown, NAUSEA, 02/14/17) Past Hlujnpr-Uzvvum-Vvduks Hx Past Med/Social Hx: Reviewed Nursing Past Med/Soc Hx, Reviewed and Corrections made Patient Social History Marrital Status: single Alcohol Use: Denies Use Recreational Drug Use: No Smoking Status: Former Smoker Former Smoker, Quit: Jul 15, 1999 Type Used: Cigarettes 2nd Hand Smoke Exposure: No Recent Foreign Travel: No Contact w/other who traveled: No Recent Hopitalizations: No Recent Infectious Disease Expo: No Immunizations Up To Date Tetanus Booster (TDap): Unknown Seasonal Allergies Seasonal Allergies: No Past Medical History Surgeries: Orthopedic Cardiac: Cardiomyopathy, Coronary Artery Disease, Heart Attack, High Cholesterol, Hypertension Neurological: Dementia Genitourinary: Bladder Infection, UTI-Chronic Gastrointestinal: Chronic Constipation, Hiatal Hernia, Gall Bladder Disease Musculoskeletal: Arthritis, Fractures Hearing Impairment: Hard of Hearing Psychosocial: Anxiety, Depression History of Blood Disorders: No Family History Diabetes mellitus G8 SISTER Kidney disease 19 FATHER Parkinson's disease 19 FATHER Review of Systems Constitutional: see HPI Gastrointestinal: abdominal pain Physical Exam Physical Exam Vital Signs Vital Signs - First Documented 04/09/19 04/09/19 00:29 01:37 Temp 36.8 Pulse 100 Resp 20 B/P (MAP) 109/51 (70) Pulse Ox 95 O2 Delivery Nasal Cannula O2 Flow Rate 4.00 Capillary Refill : Less Than 3 Seconds Height, Weight, BMI Height: 5'7.00" Weight: 135lbs. 8.0oz. 61.383931pt; 24.54 BMI Method:Stated General Appearance: Anxious, Chronically ill, Moderate Distress Respiratory: Lungs Clear Cardiovascular: Regular Rate, Rhythm Results Results/Procedures Labs Laboratory Tests 04/09/19 00:35 Patient resulted labs reviewed. Assessment/Plan Admission Diagnosis Assessment: Intestinal perforation End of life Plan: Comfort care protocol Admission Status: Inpatient Order (span 2 midnights) Reason for Inpatient Admission: Intestinal perforation Diagnosis/Problems Diagnosis/Problems (1) Large bowel perforation Status: Acute (2) Shock Status: Acute (3) Need for comfort care Status: Acute (4) comfort care Clinical Quality Measures DVT/VTE Risk/Contraindication: Risk Factor Score Per Nursin RFS Level Per Nursing on Admit: 4+=Very High LACHELLE ALCANTARA DO Apr 09, 2019 10:18
[2019-04-09] MEDS ORDERED: morphine PCA 100 MG/100 ML BAG IV PRN (13:30)
[2019-04-09] MEDS ORDERED: NS IV 1000 ML 1,000 ML ONE (13:53)
[2019-04-09 16:00] VITALS: BP 90/53
[2019-04-09 23:43] VITALS: BP 74/55
[2019-04-10 08:00] VITALS: BP 56/44
--- NOTE | 2019-04-10 09:35 | Progress Note - Hospitalist ---
Subjective HPI/CC On Admission Date Seen by Provider: Apr 10, 2019 Time Seen by Provider: 09:00 Chief complaint: Intestinal perforation- admitted for end of life care. HPI: This is an 83yoWF admitted to [facility] from [facility] for end of life care and palliative care. Apparently she began to have severe abdominal pain, was assessed to have a severe intestinal perforation and Pt had shock and multi-system organ failure and chose to be kept comfortable, admitted for comfort care protocol and family at the bedside agreeable with the plan. Her ganjuedn-ak-tbn is a nurse at [facility]. I introduced Chris Anderson palliative care nurse to the family and we will work n getting Pt more comfortable, and add Scopolamine patch. Subjective/Events-last exam Pt still on end of life care Pt unresponsive now Does not appear to be in any pain Family at the bed side Focused Exam Lactate Level 04/09/19 00:35: Lactic Acid Level 1.98 Objective Exam Vital Signs Vital Signs Date Time Temp Pulse Resp B/P (MAP) Pulse Ox O2 Delivery O2 Flow Rate FiO2 04/10/19 16:00 133 16 80/50 (60) 79 Room Air 04/10/19 08:00 37.0 4.00 Capillary Refill : Less Than 3 Seconds General Appearance: No Apparent Distress, Other (comatose) Results/Procedures Lab Patient resulted labs reviewed. Assessment/Plan Assessment and Plan Assess & Plan/Chief Complaint Assessment: Intestinal perforation End of life care Diagnosis/Problems Diagnosis/Problems (1) Large bowel perforation Status: Acute (2) Shock Status: Acute (3) Need for comfort care Status: Acute (4) comfort care Clinical Quality Measures DVT/VTE Risk/Contraindication: Risk Factor Score Per Nursin RFS Level Per Nursing on Admit: 4+=Very High NEREIDA ALCANTARA DO Apr 10, 2019 09:35
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
--- NOTE | 2019-04-10 14:17 | NUR ---
Palliative Care RN in to see patient. She still appears to be very comfortable without grimace, or furrow and extra movements. CADD continues to deliver pain medication without need for increase at this time. SHe i no longer using oxygen at this time and appears to be with regular respiration to slightly extended expiratory duration. Lower extremity remains warm with palpable pedal pulses no mottling. Family in room and have no voiced needs at this time.
[2019-04-10 16:00] VITALS: BP 80/50
--- NOTE | 2019-04-10 20:10 | NUR ---
PT PRONOUNCED AT 2009. THIS RN AND [facility] CONFIRMED. FAMILY AT BEDSIDE AND NOTIFIED. DR. ALCANTARA NOTIFIED AT 2015. FAMILY DENIED GIUSEPPE SERVICES, BUT NOTIFIED GIUSEPPE BRO AT 2039. VICTOR TRANSPLANT NOTIFIED AT 2021, PT NOT A CANDIDATE FOR ORGAN/TISSUE DONATION, REFERENCE NUMBER [id number]. HOME NOTIFIED AT 2028, [place] IN [place]. PERMISSION TO RELEASE THE BODY TO THE HOME WAS GIVEN OVER THE PHONE, BY DAUGHTER ALEKSANDRA BISHOP RN WITNESS. HOME ARRIVED AT 2200 TO CLAIM THE BODY. [place] BAND PRESENT ON LEFT RING-FINGER.
--- NOTE | 2019-04-10 21:26 | Discharge Summary ---
Discharge Summary Hospital Course Was the Problem List Reviewed?: Yes Problems/Dx: (1) Large bowel perforation Status: Acute (2) Shock Status: Acute (3) Need for comfort care Status: Acute (4) comfort care Hospital Course Date of Admission: Apr 09, 2019 at 03:00 Admission Diagnosis : Family Physician/Provider: Juan Henao MD Date of Discharge: 04/10/19 Discharge Diagnosis: Intestinal perforation Hospital Course: Patient had a short hospital course after she was admitted to [facility] [place] due to intestinal perforation. Family and patient elected to be placed on comfort care and she was kept comfortable until she at 2009. Labs and Pending Lab Test: Microbiology 04/09/19 Blood Culture - Preliminary, Resulted No growth 04/09/19 Influenza Types A,B Antigen (DIMPLE) - Final, Complete 04/09/19 Urine Culture - Final, Complete Lactobacillus gasseri Home Meds Active Enoxaparin Sodium 40 Mg/0.4 Ml Syringe 40 Mg SC Q24H 14 Days Hydrocodon -Acetaminophen 5-325 (Hydrocodone/Acetaminophen) 1 Each Tablet 1 Tab PO 0730,0800 PRN TAKES 1 TABLET IN THE MORNING THEN TAKES A SECOND DOSE 30 MINUTES LATER Alprazolam 1 Mg Tablet 1 Mg PO BID PRN Reported Vitamin B-12 (Cyanocobalamin (Vitamin B-12)) 1,000 Mcg/1 Ml Drops 1,000 Mcg PO DAILY Senokot-S Tablet (Sennosides/Docusate Sodium) 1 Each Tablet 2 Tab PO DAILY PRN Lisinopril 10 Mg Tablet 10 Mg PO DAILY Myrbetriq (Mirabegron) 50 Mg Tab.er.24h 50 Mg PO HS Pantoprazole Sodium 40 Mg Tablet.dr 40 Mg PO DAILY Gabapentin 100 Mg Capsule 100 Mg PO BID Aspir 81 (Aspirin) 81 Mg Tablet.dr 81 Mg PO DAILY Assessment/Pt Instructions Discharge Planning: <30 minutes discharge planning Discharge Physical Examination Vital Signs Vital Signs Date Time Temp Pulse Resp B/P (MAP) Pulse Ox O2 Delivery O2 Flow Rate FiO2 04/10/19 16:00 133 16 80/50 (60) 79 Room Air 04/10/19 08:00 37.0 4.00 Allergies: Coded Allergies: Penicillins (Verified Allergy, Unknown, RASH, 02/14/17) oxycodone (Verified Allergy, Unknown, NAUSEA, 8/3/17) Discharge Summary Date of Admission Apr 09, 2019 at 03:00 Date of Discharge Admission Diagnosis Assessment: Intestinal perforation End of life Plan: Comfort care protocol Comfort Measures/ End of Life Care: Comfort Measures Discharge Diagnosis Assessment: Intestinal perforation End of life care (1) Large bowel perforation Status: Acute (2) Shock Status: Acute (3) Need for comfort care Status: Acute (4) comfort care Clinical Quality Measures DVT/VTE Risk/Contraindication: Risk Factor Score Per Nursin RFS Level Per Nursing on Admit: 4+=Very High NEREIDA ALCANTARA DO Apr 10, 2019 21:26
[2019-04-12] MEDS ORDERED: SCOPOLAMINE PATCH REMOVAL TP SCH (08:59)
== END 2019-04-10 20:10 | disposition expired | DRG 951 ==
LOC: EDUNIT# 00:29 → ER FS 00:31 → 4TH 03:00
PROVIDERS: ADMIT Internal Medicine; ATTEND Internal Medicine
DX: Z51.5 Encounter for palliative care (principal); K63.1 Perforation of intestine (nontraumatic); R57.9 Shock, unspecified; I42.9 Cardiomyopathy, unspecified; I25.10 Atherosclerotic heart disease of native coronary artery without angina pectoris; E78.00 Pure hypercholesterolemia, unspecified; I11.0 Hypertensive heart disease with heart failure; I50.9 Heart failure, unspecified; Z66 Do not resuscitate; K59.09 Other constipation; M19.91 Primary osteoarthritis, unspecified site; F41.9 Anxiety disorder, unspecified; F32.9 Major depressive disorder, single episode, unspecified; H91.90 Unspecified hearing loss, unspecified ear; F03.90 Unspecified dementia, unspecified severity, without behavioral disturbance, psychotic disturbance, mood disturbance, and anxiety; K44.9 Diaphragmatic hernia without obstruction or gangrene; K57.30 Diverticulosis of large intestine without perforation or abscess without bleeding; Z87.440 Personal history of urinary (tract) infections; Z87.891 Personal history of nicotine dependence; Z88.0 Allergy status to penicillin; Z88.5 Allergy status to narcotic agent
CPT/HCPCS: 36415; 71045; 74177; 80053; 81000; 82805; 83605; 83690; 84484; 85007; 85027; 85610; 85730; 87040; 87077; 87088; 87804; 93005; 96361; 96374; 96375